=== PATIENT | female | born 1960 | race Caucasian/White ===

== ENCOUNTER → 2017-12-30 08:59 | Outpatient (CLI) | payer OTHER, SELFPAY ==
[2017-12-30 10:34] LABS: Absolute Lymphocyte Count 1.19 X10^3/ul (0.83-4.51); Absolute Neutrophil Count 6.2 X10^3/uL (2.0-7.7); Basophil# 0.02 X10^3/uL; Basophil% 0.3 % (0-1); Eosinophil# 0.08 X10^3/uL; Hemoglobin 14.2 g/dl (12.0-15.0); Lymphocyte # 1.19 X10^3/ul (4.0); Mean Corpuscular Hgb 31.8 pg (27.0-32.0); Mean Corpuscular Volume 96.4 fL (81-99); Mean Platelet Vol. 9.5 fl (6.2-12.0); Monocyte# 0.39 X10^3/uL; Monocyte% 4.9 % (0-10); Neutrophil # 6.22 X10^3/uL (2.7-7.7); Neutrophil % 78.7 % (47-70); Platelet Count 241 K/mm3 (150-450); RBC Distribution Width CV 14.6 % (11.6-14.6); RBC Distribution Width SD 49.5 fl (35.1-43.9); Red Blood Count 4.46 M/mm3 (4.2-5.4); White Blood Count 7.9 K/mm3 (4.4-11.0)
[2017-12-30 10:43] LABS: ALB/GLOB Ratio 1.1 RATIO (0.9-2.4); AST(SGOT) 18 U/L (15-37); Alanine Aminotransfer ALT/SGPT 31 U/L (13-56); Albumin, Serum 3.8 g/dL (3.2-5.0); Alkaline Phosphatase 135 U/L (45-117); Anion Gap 6 (5-15); BUN 15 mg/dL (7-18); BUN/Creat Ratio 13.2 RATIO (10-20); Calcium,Total 8.8 mg/dL (8.5-10.1); Chloride 104 mmol/L (98-107); Creatinine, Serum 1.14 mg/dL (0.55-1.02); EST Glomerular Filtration Rate 52 mL/min (>60); Est Glom Filt Rate - Afr Amer 63 mL/min (>60); Globulin 3.6 g/dL (2.2-4.2); Glucose 98 mg/dL (74-106); Potassium 4.6 mmol/L (3.5-5.1); Protein, Total 7.4 g/dL (6.4-8.2); Sodium Level 141 mmol/L (136-145)
[2017-12-30 10:44] LABS: POSITIVE COUNT NO; POSITIVE DIFFERENTIAL NO; POSITIVE MORPHOLOGY NO
== END ==
PROVIDERS: Family Provider Family Medicine; PCP Family Medicine; Visit Provider Internal Medicine Rheumatology
DX: M06.4 Inflammatory polyarthropathy (principal); M21.40 Flat foot [pes planus] (acquired), unspecified foot; R51 Headache; H40.9 Unspecified glaucoma; Z79.899 Other long term (current) drug therapy
CPT/HCPCS: 36415; 80053; 85025

== ENCOUNTER 2018-03-05 17:14 | Emergency (ER) | payer OTHER, SELFPAY ==
[2018-03-05 17:15] VITALS: BP 143/87; PULSE 97; RESP 16; TEMP 36.7; O2SAT 99; BMI 32.9
--- NOTE | 2018-03-05 17:46 | ED.DCSUM_ITS ---
- ER Visit Summary Date of Service: 03/05/18 Chief Complaint: Foreign body in left ear History of Present Illness: The patient is a 58 F who presents with a foreign body to her left ear that occurred today. Patient states a bug flew into her left ear. Patient states she has irritation of her left ear. Patient denies any hearing changes. Patient denies any fevers or chills. Patient denies any headaches. Patient denies any dizziness. Patient denies any other symptoms. Physical Examination: Vital signs are stable. Patient is afebrile. Patient is in no acute distress. There is a small foreign body noted in the left external auditory canal. The tympanic membranes and external auditory canals are otherwise clear. Oral mucosa is pink and moist. Neck is supple. There is good range of motion. Cranial nerves II through XII are intact. There are no focal motor or sensory deficits noted. The remaining physical exam is within normal limits. Emergency Department Course and Treatment: The left ear was irrigated. The foreign body was removed. Patient felt better on reevaluation. Patient was instructed to follow-up with her primary care physician in 7-10 days. She understood and was agreeable with the plan. All questions were answered. Disposition: Discharged home Impression: Foreign body left ear This note was generated with [employer] dictation software. It may contain incorrect words, spelling, and punctuation that were not noted in review of the chart prior to signing ED Disposition - Plan for ED Patient: Disposition: Home or Assisted Living Chief Complaint: Foreign Body Instructions: ED Foreign Body Ear Canal Referrals: Lonny Payne DO [Primary Care Provider] -
[2018-03-05 18:03] VITALS: PULSE 87; RESP 17; O2SAT 99
== END 2018-03-05 18:04 | disposition home or self-care (01) ==
LOC: ED 18:00
PROVIDERS: Emergency Provider Emergency Medicine; Family Provider Family Medicine; PCP Family Medicine
DX: T16.2XXA Foreign body in left ear, initial encounter (principal); Z79.899 Other long term (current) drug therapy
CPT/HCPCS: 99282

== ENCOUNTER → 2018-05-11 10:19 | Outpatient (CLI) | payer OTHER, SELFPAY ==
[2018-05-11 13:00] LABS: Vitamin D,25 Hydroxy 39.3 ng/mL (29.95-100.01)
[2018-05-11 13:14] LABS: T4 Free Direct 0.95 ng/dL (0.76-1.46); Thyroid Stim Hormone (TSH) 4.91 uIU/mL (0.358-3.74)
== END ==
PROVIDERS: Family Provider Family Medicine; PCP Family Medicine; Visit Provider Family Medicine
DX: E55.9 Vitamin D deficiency, unspecified (principal); Z86.39 Personal history of other endocrine, nutritional and metabolic disease
CPT/HCPCS: 36415; 82306; 84439; 84443

== ENCOUNTER → 2018-10-19 08:21 | Outpatient (CLI) | payer OTHER, SELFPAY ==
--- NOTE | 2018-10-19 08:24 | BI_ITS ---
MAMMOGRAPHY - BILATERAL SCREENING REASON FOR EXAM: Female, 58 years old. Routine annual screening examination. PERTINENT HISTORY: Grandmother with breast cancer. Aunts with breast cancer. TECHNIQUE: Digital bilateral breast kristine (3D mammographic acquisition) in the CC and MLO projections. 2-D mediolateral oblique (MLO) and craniocaudad (CC) views of both breasts were obtained. CAD: Full Field Digital Mammography with Computer Added Detection was performed. COMPARISON: Comparison is made with prior study dated August 12, 2017 and July 17, 2016. FINDINGS: Breast Composition: The breasts are almost entirely fatty. There are no dominant masses or suspicious calcifications. No other significant abnormalities are identified. There has been no significant change since the prior study. BI/SCREENING MAMM (CAD), BILAT IMPRESSION: Stable bilateral screening mammogram. Yearly follow-up mammogram recommended. (A) ASSESSMENT CATEGORY: BIRADS Category 1: Negative. A letter regarding these results will be sent to the patient by the facility within 30 days. Approximately 10% of breast cancers are not detected by mammography. A normal mammogram should not delay biopsy of a clinically suspicious abnormality. [id number] Electronically Signed: Art Logan MD at 9:55 EST Tel [phone], Service support ,
== END ==
PROVIDERS: Family Provider Family Medicine; PCP Family Medicine; Referring Provider Obstetrics & Gynecology; Visit Provider Obstetrics & Gynecology
DX: Z12.31 Encounter for screening mammogram for malignant neoplasm of breast (principal)
CPT/HCPCS: 77063; 77067

== ENCOUNTER → 2018-12-10 16:15 | Outpatient (CLI) | payer OTHER, SELFPAY | PROVIDERS: Family Provider Family Medicine; PCP Family Medicine; Visit Provider Family Medicine | DX: J20.8 Acute bronchitis due to other specified organisms (principal) | CPT/HCPCS: 87633 ==

== ENCOUNTER → 2018-12-24 09:51 | Outpatient (CLI) | payer OTHER, SELFPAY ==
--- NOTE | 2018-12-24 10:01 | NM_ITS ---
CLINICAL: 58-year-old female with suspected Paget's disease of bone. WHOLE BODY 99m Tc MDP RADIONUCLIDE BONE SCINTIGRAPHY COMPARISON: None available FINDINGS: Following the intravenous administration of 28.0 mCi of 99m Tc MDP, whole body bone images reveal: 1. Increased radiopharmaceutical concentration is identified in the left wrist, sternoclavicular compartments of both shoulders, acromioclavicular compartment of the right shoulder, fifth lumbar vertebra posteriorly on the right, posterior midline sacrum, the bilateral knees, right ankle, the left mid and forefoot, right-left hands. 2. The remaining skeletal structures are scintigraphically unremarkable with normal-appearing renal images and urinary bladder activity identified. Enhanced tracer concentration is identified in the bilateral mandible, maxilla and lacrimal bones most consistent with periostitis and/or periodontal disease. NM/Bone Scan Whole Body IMPRESSION: 1. The increase in radiopharmaceutical concentration defined of the left wrist, bilateral shoulders, lumbar spine and sacrum, both knees, right ankle, the left mid and forefoot, both hands is commensurate with degenerative arthritis. 2. There is no definitive typical scintigraphic evidence of a metabolic bone disorders-Paget's disease of bone on the current examination. Electronically Signed: Vinny Romano DO at 23:40 EDT Tel , Service support ,
[2018-12-25 16:08] LABS: Alkaline Phosphatase, Serum 163 IU/L (39-117); Bone Fraction 39 % (14-68); Liver Fraction 28 % (18-85)
[2018-12-27 09:10] LABS: Intestinal Fraction 33 % (0-18)
== END ==
PROVIDERS: Family Provider Family Medicine; PCP Family Medicine; Referring Provider Internal Medicine Rheumatology; Visit Provider Internal Medicine Rheumatology
DX: R74.8 Abnormal levels of other serum enzymes (principal)
CPT/HCPCS: 36415; 78306; 84075; 84080

== ENCOUNTER → 2019-02-09 | Outpatient (CLI) | payer OTHER, SELFPAY ==
--- NOTE | 2019-02-09 14:27 | RAD_ITS ---
STUDY: X-RAY CHEST REASON FOR EXAM: Female, 59 years old. Cough TECHNIQUE: PA and lateral views of the chest. COMPARISON: None. FINDINGS: The lungs are clear and expanded. There is no demonstrated pleural abnormality. Normal size heart. Normal mediastinum and debbie. Normal visualized pulmonary arteries. Normal visualized aortic arch and descending thoracic aorta. There are diffuse degenerative changes of the visualized thoracic spine. Normal visualized ribs, clavicles, and shoulders. There is no demonstrated abnormality of the visualized soft tissue structures of the upper abdomen. RAD/Chest PA and Lateral IMPRESSION: No demonstrated acute cardiopulmonary process. Electronically Signed: Catherine Andrew MD at 19:58 EDT Tel , Service support ,
[2019-02-09 15:09] LABS: Absolute Lymphocyte Count 2.02 X10^3/ul (0.83-4.51); Absolute Neutrophil Count 4.3 X10^3/uL (2.0-7.7); Basophil# 0.03 X10^3/uL; Basophil% 0.4 % (0-1); Eosinophil# 0.15 X10^3/uL; Eosinophils% 2.2 % (0-5); Hematocrit 42.1 % (37-47); Hemoglobin 13.9 g/dl (12.0-15.0); Lymphocyte # 2.02 X10^3/ul (4.0); Lymphocyte % 29.5 % (19-41); Mean Corpuscular Hgb 29.4 pg (27.0-32.0); Mean Corpuscular Volume 89.2 fL (81-99); Mean Platelet Vol. 9.6 fl (6.2-12.0); Monocyte# 0.39 X10^3/uL; Monocyte% 5.7 % (0-10); Neutrophil # 4.25 X10^3/uL (2.7-7.7); Neutrophil % 62.1 % (47-70); Platelet Count 266 K/mm3 (150-450); RBC Distribution Width SD 42.1 fl (35.1-43.9); Red Blood Count 4.72 M/mm3 (4.2-5.4); White Blood Count 6.9 K/mm3 (4.4-11.0)
[2019-02-09 15:11] LABS: POSITIVE COUNT NO; POSITIVE DIFFERENTIAL NO; POSITIVE MORPHOLOGY NO
== END | disposition home or self-care (01) ==
LOC: MTLAB 14:23
PROVIDERS: Family Provider Family Medicine; PCP Family Medicine; Referring Provider Family Medicine; Visit Provider Family Medicine
DX: R05 Cough (principal)
CPT/HCPCS: 36415; 71046; 85025

== ENCOUNTER → 2019-03-24 | Outpatient (CLI) | payer OTHER, SELFPAY ==
--- NOTE | 2019-03-24 07:47 | US_ITS ---
STUDY: ABDOMINAL ULTRASOUND - RIGHT UPPER QUADRANT REASON FOR VISIT: Female, 59 years old. Elevated alkaline phosphatase. TECHNIQUE: Ultrasound evaluation of the right upper quadrant was performed with real-time and static quintero-scale imaging. TECHNICAL QUALITY: Adequate. COMPARISON: None. FINDINGS: Liver: The liver measures 13.8 cm. There is increased echogenicity consistent with fatty infiltration. The bile ducts are within normal limits. There is hepatic color flow. The direction of portal flow is hepatopetal. There is no demonstrated mass lesion. Gallbladder: Normal distended gallbladder. The gallbladder wall measures 1.8 mm. There is a negative sonographic Rivera's sign. There is no pericholecystic fluid. There are no gallstones. Common Bile Duct (C.B.D.): The common bile duct measures 6.1 mm. Pancreas: Normal size of the head, body and tail of the pancreas. There is increased echogenicity of the pancreas. There is no demonstrated pancreatic mass or cyst. Right Kidney: Normal size of the right kidney. The right kidney measures 10.1 cm x 4.8 cm x 3.9 cm. Normal renal cortex. The right cortex measures 1.0 cm. There is no demonstrated renal mass or cyst. There is no right hydronephrosis. US/Liver IMPRESSION: Fatty infiltration of the liver. Electronically Signed: Art Logan, at 15:24 EDT , Service support ,
== END | disposition home or self-care (01) ==
LOC: US 07:44
PROVIDERS: Family Provider Family Medicine; PCP Family Medicine; Referring Provider Family Medicine; Visit Provider Family Medicine
DX: R74.8 Abnormal levels of other serum enzymes (principal)
CPT/HCPCS: 76705

== ENCOUNTER → 2019-06-29 | Outpatient (CLI) | payer OTHER, SELFPAY ==
[2019-06-29 12:57] LABS: AST(SGOT) 14 U/L (15-37); Alanine Aminotransfer ALT/SGPT 27 U/L (13-56); Albumin, Serum 3.8 g/dL (3.2-5.0); Alkaline Phosphatase 207 U/L (45-117); Anion Gap 6 (5-15); BUN 27 mg/dL (7-18); BUN/Creat Ratio 23.3 RATIO (10-20); Calcium,Total 9.2 mg/dL (8.5-10.1); Chloride 106 mmol/L (98-107); Creatinine, Serum 1.16 mg/dL (0.55-1.02); EST Glomerular Filtration Rate 51 mL/min (>60); Est Glom Filt Rate - Afr Amer 61 mL/min (>60); Glucose 98 mg/dL (74-106); Potassium 4.3 mmol/L (3.5-5.1); Protein, Total 7.8 g/dL (6.4-8.2); Sodium Level 141 mmol/L (136-145)
[2019-06-29 13:37] LABS: Hepatitis C Antibody Non-Reactive (Nonreactive)
== END | disposition home or self-care (01) ==
LOC: LAB.FUTURE 12:20
PROVIDERS: Family Provider Family Medicine; PCP Family Medicine; Visit Provider Family Medicine
DX: K75.81 Nonalcoholic steatohepatitis (NASH) (principal); R74.8 Abnormal levels of other serum enzymes
CPT/HCPCS: 36415; 80053; 86803

== ENCOUNTER → 2019-07-28 | Outpatient (CLI) | payer OTHER, SELFPAY ==
[2019-07-28 16:22] LABS: AST(SGOT) 15 U/L (15-37); Alanine Aminotransfer ALT/SGPT 26 U/L (13-56); Albumin, Serum 3.8 g/dL (3.2-5.0); Alkaline Phosphatase 178 U/L (45-117); Bilirubin, Direct < 0.05 mg/dL (0.00-0.30); GGTP 22 U/L (5-55); Globulin 3.6 g/dL (2.2-4.2); Protein, Total 7.4 g/dL (6.4-8.2)
[2019-07-30 17:54] LABS: Anti-Mitochondrial AB <20.0 Units (0.0-20.0)
== END | disposition home or self-care (01) ==
LOC: MTLAB 14:39
PROVIDERS: Family Provider Family Medicine; PCP Family Medicine; Referring Provider Internal Medicine Gastroenterology; Visit Provider Internal Medicine Gastroenterology
DX: K76.0 Fatty (change of) liver, not elsewhere classified (principal)
CPT/HCPCS: 36415; 80076; 82977; 83516

== ENCOUNTER → 2019-11-05 08:22 | Outpatient (CLI) | payer OTHER, SELFPAY ==
--- NOTE | 2019-11-05 08:34 | BI_ITS ---
MAMMOGRAPHY - BILATERAL SCREENING REASON FOR EXAM: Female, 59 years old. Routine annual screening examination. PERTINENT HISTORY: Grandmother with breast cancer. Aunt with breast cancer. TECHNIQUE: Digital bilateral breast mary ellen (3D mammographic acquisition) in the CC and MLO projections. 2-D mediolateral oblique (MLO) and craniocaudad (CC) views of both breasts were obtained. CAD: Full Field Digital Mammography with Computer Added Detection was performed. COMPARISON: Comparison is made with prior study dated April 18, 2019 and August 12, 2017 FINDINGS: Breast Composition: The breasts are almost entirely fatty. There are no dominant masses or suspicious calcifications. No other significant abnormalities are identified. There has been no significant change since the prior study. BI/SCREEN MAMM (CAD) W/MARY ELLEN BILAT IMPRESSION: Stable bilateral screening mammogram. Yearly follow-up mammogram recommended. (A) ASSESSMENT CATEGORY: BIRADS Category 1: Negative. A letter regarding these results will be sent to the patient by the facility within 30 days. Approximately 10% of breast cancers are not detected by mammography. A normal mammogram should not delay biopsy of a clinically suspicious abnormality. [id number] Electronically Signed: Art Logan, at 10:36 EST , Service support ,
== END ==
PROVIDERS: PCP Family Medicine; Referring Provider Obstetrics & Gynecology; Visit Provider Obstetrics & Gynecology
DX: Z12.31 Encounter for screening mammogram for malignant neoplasm of breast (principal)
CPT/HCPCS: 77063; 77067

== ENCOUNTER 2020-03-13 09:23 | Observation (INO) | payer OTHER, SELFPAY ==
[2020-03-13] VITALS (16 sets, daily range): BP systolic 106–155; BP diastolic 64–86; PULSE 16–79; RESP 12–67; TEMP 36.7–36.9; O2SAT 97–99; BMI 34.5; BMI 33.0
[2020-03-13 09:36] LABS: Bedside Glucose 124 mg/dL (70-110)
--- NOTE | 2020-03-13 09:39 | EKG12_ITS ---
Test Reason : NEURO Blood Pressure : / mmHG Vent. Rate : 065 BPM Atrial Rate : 065 BPM P-R Int : 174 ms QRS Dur : 090 ms QT Int : 428 ms P-R-T Axes : 042 029 067 degrees QTc Int : 445 ms Normal sinus rhythm Poor R wave progression Nonspecific T wave abnormality Confirmed by EVERETT PARRISH, CHELLY ([id number]), electronic news gathering editor BLANCA LEE ([id number]) on 03/16/2020 10:22:18 AM Referred By: JAVIER/ Confirmed By:CHELLY FLOYD MD
--- NOTE | 2020-03-13 09:41 | CT_ITS ---
STUDY: CTA HEAD AND NECK WITH CONTRAST REASON FOR EXAM: Female, 60 years old. MIGRAINE YESTERDAY, DIZZINESS, VISION CHANGES, RT NECK PAIN, RT FACIAL TINGLING RADIATION DOSAGE (If Supplied By Facility): CTDIvol = ( 26.44 ) mGy, DLP = ( 1375.26 ) mGycm TECHNIQUE: CT angiography was performed with a multi-detector CT scanner. Data acquisition was obtained from the skull base through the vertex following intravenous administration of 100 CC ISOVUE 300. MIP images were reconstructed from the axial data set. Post-processing of the angiographic images was performed, with multiplanar reformation and 3D reconstruction. Individualized dose optimization techniques were used for this CT. COMPARISON: No relevant priors. FINDINGS: Normal bilateral petrous carotid arteries. Normal right cavernous carotid artery with a normal supraclinoid bifurcation. Normal left cavernous carotid artery with a normal supraclinoid bifurcation. Normal right A1 segments of the anterior cerebral artery. Normal left A1 segments of the anterior cerebral artery. Normal intact anterior communicating artery (ACOM). Normal bilateral A2 segments of the anterior cerebral arteries. Normal right M1 and M2 segments of the middle cerebral arteries, with a normal M1 bifurcation. Normal left M1 and M2 segments of the middle cerebral arteries, with a normal M1 bifurcation. Normal right posterior communicating artery (PCOM). Normal left posterior communicating artery (PCOM). Normal bilateral vertebral arteries. Normal basilar artery with a normal basilar bifurcation. The visualized bilateral superior cerebellar (SCA) arteries are normal. Normal bilateral P1, P2 and visualized P3 segments of the posterior cerebral arteries. There is no demonstrated aneurysm of the [facility] [place]. There is no demonstrated abnormality of the visualized brain. AORTIC ARCH: Normal visualized aortic arch. Normal origins of the brachiocephalic, left common carotid, and left subclavian arteries. RIGHT CAROTID ARTERIES: Normal right common carotid artery (CCA). Normal right common carotid bulb. Normal origin of the right internal carotid (ICA) artery without a hemodynamically significant stenosis. Normal visualized cervical portion of the right internal carotid artery. Normal origin of the right external carotid artery (ECA). LEFT CAROTID ARTERIES: Normal left common carotid artery (CCA). Normal left common carotid bulb. Normal origin of the left internal carotid (ICA) artery without a hemodynamically significant stenosis. Normal visualized cervical portion of the left internal carotid artery. Normal origin of the left external carotid artery (ECA). VERTEBRAL ARTERIES: Normal bilateral vertebral arteries. CT/CTA Head AND Neck W/ Contrast IMPRESSION: Normal CTA Head and neck with contrast. Electronically Signed: Art Logan, at 11:16 EDT , Service support ,
--- NOTE | 2020-03-13 09:42 | ED.VIS.GEN ---
History of Present Illness Chief Complaint: Neuro S/Sx Narrative: Patient is a 60-year-old female who presents with headache, dizziness, facial paresthesias. She has a history of migraines remotely but these have been well controlled. Over the past 2 weeks she has been having frequent headaches although she notes this is different in character than her migraines. Currently she only complains of mild pain but she has a throbbing sensation in her head. She also complains of bilateral eye pain starting last night. She does have a history of glaucoma. She does not have light sensitivity. She also began to feel dizzy and lightheaded last night and had difficulty ambulating because of this. She denies any weakness or paresthesias in the extremities although she does complain of some right facial paresthesias. No dysarthria or aphasia. She denies history of diabetes or hypertension. No prior history of [place] or stroke. She is not anticoagulated. She also complains of pain on the right side of her neck. Past Medical History - Allergies and Home Meds Allergies/Adverse Reactions: Allergies No Known Allergies Allergy (Verified 03/13/20 09:28) Primary Care Physician: Lonny Payne DO [Primary Care Provider] - Past Medical History: - - Glaucoma, migraines Smoking Status: Never smoker Review of Systems All systems negative except as indicated General: Denies: Fever Eyes: Reports: - - Bilateral eye pain, no photophobia ENT: Denies: Bilateral ear pain Cardiovascular: Denies: Chest pain Respiratory: Denies: Dyspnea Gastrointestinal: Denies: Abdominal pain, Nausea, Vomiting Musculoskeletal: Reports: Neck pain Skin: Denies: Rash Neurological: Reports: Headache Allergy: Denies: Uticaria Physical Exam Vital Signs/Narrative: Vital Signs Temp Pulse Resp BP Pulse Ox 03/13/20 09:24 98.2 F 72 14 155/81 H 98 Inital Vital Signs reviewed: Yes General: Well nourished, Well developed Head: Normocephalic, Atraumatic Eyes: Perrl, EOMI ENT: Moist mucous membranes Neck: Supple Cardiovascular: Regular rate, Regular rhythm Respiratory: No distress, CTA bilaterally Abdomen: Soft, Nontender, Nondistended Extremities: Nontender, No edema Skin: Normal color Neurological: Alert, Oriented x3, Cranial nerves II-XII grossly intact, Normal Strength, - - Patient complains of decreased sensation on the right side of the face only normal sensation and strength of the extremities Psychological: Normal affect Diagnostic/Tx/Re-eval Impressions Head/Neck CTA 03/13/20 09:41 IMPRESSION: Normal CTA Head and neck with contrast. Electronically Signed: Art Doreen, at 11:16 EDT , Service support , Chest X-Ray 03/13/20 10:56 IMPRESSION: Normal x-ray examination of the chest. Electronically Signed: Art Doreen, at 11:17 EDT , Service support , 03/13/20 09:41 CTA Head AND Neck W/ Contrast [CT] Stat 03/13/20 10:56 Chest 1 View [RAD] Stat Laboratory Results 03/13/20 03/13/20 03/13/20 09:30 09:30 09:30 WBC 5.2 RBC 4.87 Hgb 14.2 Hct 44.1 MCV 90.6 MCH 29.2 MCHC 32.2 RDW Std Deviation 42.0 RDW Coeff of Gisselle 12.8 Plt Count 248 MPV 9.5 Immature Gran % (Auto) 0.400 Neut % (Auto) 65.2 Lymph % (Auto) 22.0 Florence % (Auto) 7.7 Eos % (Auto) 3.7 Baso % (Auto) 1.0 Absolute Neuts (auto) 3.4 Absolute Lymphs (auto) 1.14 Nucleated RBC % 0 PT 12.5 INR 1.0 APTT 25.2 Sodium 139 Potassium 4.4 Chloride 104 Carbon Dioxide 29.0 Anion Gap 6 BUN 16 Creatinine 1.07 H Estim Creat Clear Calc 45.67 Est GFR (MDRD) Af Amer 67 Est GFR (MDRD) Non-Af 55 L BUN/Creatinine Ratio 15.0 Glucose 140 H Calcium 9.3 Troponin I < 0.015 POC Glucose 03/13/20 09:31 WBC RBC Hgb Hct MCV MCH MCHC RDW Std Deviation RDW Coeff of Gisselle Plt Count MPV Immature Gran % (Auto) Neut % (Auto) Lymph % (Auto) Florence % (Auto) Eos % (Auto) Baso % (Auto) Absolute Neuts (auto) Absolute Lymphs (auto) Nucleated RBC % PT INR APTT Sodium Potassium Chloride Carbon Dioxide Anion Gap BUN Creatinine Estim Creat Clear Calc Est GFR (MDRD) Af Amer Est GFR (MDRD) Non-Af BUN/Creatinine Ratio Glucose Calcium Troponin I POC Glucose 124 H - Medical Decision Making Bilateral intraocular pressures were obtained and range 21-22 bilaterally. This is the upper range of normal. However patient notes that she is normally under 13. I did speak to ophthalmology on-call, Dr. Fishman. He advised that this change would be unlikely to cause any symptoms. Remainder of patient's work-up shows EKG showing normal sinus rhythm at a rate of 65 with no acute ischemic changes. Labs are unremarkable. CTA of the head and neck is normal. I am concerned that this may be due to central pathology and do believe stroke needs ruled out. This may also be related to complex migraine. I do feel the patient would benefit from hospitalization and further evaluation. Patient is agreeable to this plan. Patient discussed with the hospitalist and admitted. ED Disposition - Plan for ED Patient: Disposition: Acute Care Hospital [facility] Diagnosis: Headache, Dizziness Referrals: Lonny Payne DO [Primary Care Provider] -
[2020-03-13] MEDS: Tetracaine 0.5% Ophthalmic Bottle 1 DRP EACH EYE (10:00)
[2020-03-13 10:11] LABS: Absolute Lymphocyte Count 1.14 X10^3/uL (0.83-4.51); Absolute Neutrophil Count 3.4 X10^3/uL (2.0-7.7); Basophil# 0.05 X10^3/uL; Eosinophil# 0.19 X10^3/uL; Eosinophils% 3.7 % (0-5); Hematocrit 44.1 % (37-47); Hemoglobin 14.2 g/dL (12.0-15.0); Lymphocyte # 1.14 X10^3/ul (4.0); Mean Corp Hgb Conc 32.2 g/dL (32-36); Mean Corpuscular Hgb 29.2 pg (27.0-32.0); Mean Corpuscular Volume 90.6 fL (81-99); Mean Platelet Vol. 9.5 fl (6.2-12.0); Monocyte% 7.7 % (0-10); NRBC Flagged by Analyzer 0 % (0-5); Neutrophil # 3.39 X10^3/uL (2.7-7.7); Neutrophil % 65.2 % (47-70); Platelet Count 248 K/mm3 (150-450); RBC Distribution Width CV 12.8 % (11.6-14.6); Red Blood Count 4.87 M/mm3 (4.2-5.4); White Blood Count 5.2 K/mm3 (4.4-11.0)
[2020-03-13 10:16] LABS: Prothrombin Time (Protime)PT. 12.5 SECONDS (11.7-14.9)
[2020-03-13 10:17] LABS: Partial Thromboplast Time 25.2 Seconds (24.1-36.2)
[2020-03-13 10:25] LABS: Anion Gap 6 (5-15); BUN 16 mg/dL (7-18); Calcium,Total 9.3 mg/dL (8.5-10.1); Chloride 104 mmol/L (98-107); Creatinine, Serum 1.07 mg/dL (0.55-1.02); EST Glomerular Filtration Rate 55 mL/min (>60); Est Glom Filt Rate - Afr Amer 67 mL/min (>60); Estimated Creatinine Clearance 45.67 ml/min; Glucose 140 mg/dL (74-106); Potassium 4.4 mmol/L (3.5-5.1); Sodium Level 139 mmol/L (136-145)
--- NOTE | 2020-03-13 10:56 | RAD_ITS ---
STUDY: X-RAY CHEST REASON FOR EXAM: Female, 60 years old. PT C/O MIGRAINE STARTING YESTERDAY AFTERNOON. DIZZINESS AND SEEING ISSUES AROUND 1929. RIGHT NECK STARTED HURTING AROUND 2039 RIGHT FACIAL TINGLING TECHNIQUE: Single AP portable view of the chest. COMPARISON: Comparison is made with prior study dated February 09, 2019. FINDINGS: EKG electrodes are seen. Mild elevation of the right hemidiaphragm. There is no demonstrated pleural abnormality. Normal size heart. Normal mediastinum and debbie. Normal visualized pulmonary arteries. Normal visualized aortic arch and descending thoracic aorta. Normal visualized thoracic spine. Normal visualized ribs, clavicles, and shoulders. There is no demonstrated abnormality of the visualized soft tissue structures of the upper abdomen. RAD/Chest 1 View IMPRESSION: Normal x-ray examination of the chest. Electronically Signed: Art Logan, at 11:17 EDT , Service support ,
--- NOTE | 2020-03-13 11:53 | NURSING ---
DR ANGELES FOR DR GEE
--- NOTE | 2020-03-13 12:02 | NURSING ---
PCU OBS KARTHIK HEADACHE, DIZZINESS
--- NOTE | 2020-03-13 12:02 | NURSING ---
DR ANGELES IN ER
--- NOTE | 2020-03-13 12:25 | HP.PCM_ITS ---
Problem List (1) Atypical migraine Status: Acute (2) Dizziness Status: Acute History of Present Illness Date of Admission: 03/13/20 Chief Complaint: Dizziness, right facial numbness since yesterday evening The patient is a 60 year old F with history of chronic migraine but no recent headache for last 5 years, came to ER with 2-week history of frequent headache. Headache starts in retrobulbar region and migrates to tragus of the ear to submandibular area and back of neck. She also complained of dizziness, right facial paresthesia/numbness, dyslipidemia with leaning on the right side since yesterday evening. In the ED, she had bilateral IOP and were 21-22 in both eyes; elevated from baseline [address] Jo talked to financial aids officer and he thinks headache is not due to glaucoma. She had an appointment with financial aids officer today which got worse point. Patient denies facial drooping, language deficit, dysarthria, dysphagia, quadrantanopsia/hemianopsia or decreased sensation in one half of her body. She never had a stroke. [] Past Medical History Allergies No Known Allergies Allergy (Verified 03/13/20 09:28) Home Medications: Ambulatory Orders Medication Instructions Recorded Latanoprost 0.005% [Xalatan 1 drop EACH EYE QHS 02/23/14 Opthalmic] Propranolol HCl [Inderal LA (Beta 80 mg PO QHS 02/23/14 Nissa)] Smoking Status: Never smoker - *Family History Paternal History Items: No pertinent history - No pertinent history of cancer, migraine or head and neck cancer Review of Systems Constitutional: Denies: Chills, Fever, Weight Change HEENT: Denies: Head Aches, Sinus Congestion, Sinus Drainage Cardiovascular: Denies: Chest Pain, Palpitations Respiratory: Denies: Cough, Shortness of breath at rest, Sputum production Gastrointestinal: Denies: Abdominal Pain, Nausea, Vomiting Genitourinary: Denies: Dysuria Musculoskeletal: Denies: Joint Pain, Joint Tenderness Skin: Denies: Rash, Wounds Neurological: Reports: Balance problems, Headaches, Incoordination, Numbness. Denies: Double vision, Change in Speech, Slurred speech, Confusion, Difficulty swallowing, Focal weakness, Tingling, Tremor, Seizures Psychiatric: Denies: Anxiety, Depression, Homicidal Ideations, Suicidal Ideations Hematologic/ Lymphatic: Denies: Easy Bruising, Easy Bleeding VTE Information - Inpt Only VTE Present on Admission: No VTE Mechan Device Prophylaxis: None VTE Pharm Prophylaxis ordered?: Yes Patient Problems: Active and Suspected Problems Headache (Acute) Dizziness (Acute) Atypical migraine (Acute) - Physical Exam Vitals/I&O's: Vital Signs Temp Pulse Resp BP Pulse Ox 98.2 F 65 19 H 122/64 H 97 03/13/20 09:24 03/13/20 12:00 03/13/20 12:00 03/13/20 12:00 03/13/20 12:00 Oxygen Delivery Method Room Air Weight: 195 lb 1.745 oz Body Mass Index (BMI) 34.5 Finger Stick Blood Glucose 124 General: Alert, Oriented x3, Cooperative HEENT: Atraumatic, PERRLA, EOMI, Normocephalic Neck: Supple, No JVD, Negative Carotid Bruits Lungs: Clear to auscultation, Normal air movement, No rhonchi, No wheeze, No rales Cardiovascular: Regular rate, Regular Rhythm, Normal S1, Normal S2, No murmurs Abdomen: Bowel Sounds Present, Soft, Non Tender, Non-Distended Extremities: No edema, Capillary Refill Less than 3 Seconds Skin: No rashes, No breakdown Musculoskeletal: No Tenderness to Palpation of Joints or Extremities Neurological: Cranial nerves II-XII grossly intact, Deep Tendon Reflexes 2+/4 and Symmetrical, Neuro grossly intact, Motor Exam 5/5 strength throughout, - - No neck rigidity. No meningeal signs. Psych/Mental Status: Normal Affect, Appropriate Laboratory Results 03/13/20 09:30: WBC 5.2, RBC 4.87, Hgb 14.2, Hct 44.1, MCV 90.6, MCH 29.2, MCHC 32.2, RDW Std Deviation 42.0, RDW Coeff of Gisselle 12.8, Plt Count 248, MPV 9.5, Immature Gran % (Auto) 0.400, Neut % (Auto) 65.2, Lymph % (Auto) 22.0, Parker % (Auto) 7.7, Eos % (Auto) 3.7, Baso % (Auto) 1.0, Absolute Neuts (auto) 3.4, Absolute Lymphs (auto) 1.14, Nucleated RBC % 0 06/01/20 09:30: PT 12.5, INR 1.0, APTT 25.2 03/13/20 09:30: Sodium 139, Potassium 4.4, Chloride 104, Carbon Dioxide 29.0, Anion Gap 6, BUN 16, Creatinine 1.07 H, Estim Creat Clear Calc 45.67, Est GFR (MDRD) Af Amer 67, Est GFR (MDRD) Non-Af 55 L, BUN/Creatinine Ratio 15.0, Glucose 140 H, Calcium 9.3, Troponin I < 0.015 03/13/20 09:31: POC Glucose 124 H Assessment/Plan All Active Problems Headache (Acute) Dizziness (Acute) Atypical migraine (Acute) This is a 60-year-old female with history of migraine and glaucoma came to ER with headache, right-sided facial numbness, disequilibrium. 1. 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 EKG shows normal sinus rhythm at [address] reported normal. Normal chest x-ray. MRI brain ordered. NIH stroke scale, blood pressure and glucose monitoring as per stroke guidelines, PT OT and speech evaluation. 2D echo if MRI brain positive of acute stroke. Tele- Neuro consult depending on further hospital course. Blood pressure is controlled. Glucose 114 BMP. Fasting profile, TSH, and A1c tomorrow a.m. 2. Migraine headache: She is on propranolol at home and is continued. 3. Bilateral glaucoma: Continue latanoprost 4. DVT prophylaxis: On Lovenox 40 mg subcu daily. Living will/advanced directive/end of life care: Patient does have living will or advanced directive. After discussion of procedures involved with full code, DNR CC arrest and DNR CC, the patient opted for full code Patient does want artificial life support including intubation, tube feed, ventilator and/chest compression, central venous catheter, vasopressor and DC shock if needed Total time spent in [id number] encounter in discussion of advanced directive 16 minutes. Clinical Impression(s) from Imaging Studies Head/Neck CTA 03/13/20 09:41 IMPRESSION: Normal CTA Head and neck with contrast. Chest X-Ray 03/13/20 10:56 IMPRESSION: Normal x-ray examination of the chest. OBSV E&M: 26042 Initial observation care L3 Procedures: 16179 Advncd Care Plan 30 Min
--- NOTE | 2020-03-13 13:06 | MRI_ITS ---
STUDY: MRI BRAIN WITHOUT CONTRAST REASON FOR EXAM: Female, 60 years old. migraines, bilat eye pain, rt facial numbness x 2 weeks TECHNIQUE: Standardized multiplanar fat and water weighted pulse sequences were obtained. COMPARISON: MRI of the brain dated February 22, 2012. Head CTA dated March 13, 2020 FINDINGS: There is mild cerebral atrophy with widening of the extra-axial spaces and ventricular dilatation. There are a limited number of small white matter hyperintensities, distributed throughout the deep white matter tracts of the cerebral hemispheres, consistent with mild chronic white matter ischemic changes. There is no evidence for recent intracranial ischemia or other cause of cytotoxic edema on diffusion weighted imaging (DWI). Normal T2* images of the brain without demonstrated susceptibility artifact. There is no demonstrated hemosiderin stain. Normal bilateral basal ganglia. Normal thalami. There is no extra-axial fluid accumulation. Normal flow voids within the major intracranial circulation suggesting patency by spin echo criteria. Normal sella turcica, pituitary gland, infundibular stalk, optic chiasm and hypothalamus. Normal tectal plate and pineal gland. Normal midbrain, bhavani and medulla. Normal cerebellum. Normal basal cisterns. Normal bilateral temporal bones. Normal bilateral internal auditory canals. No demonstrated orbital abnormality, within the constraints of a routine brain study. Normal visualized paranasal sinuses. Normal calvarium and skull base. Normal visualized soft tissue structures. MRI/Brain without Contrast IMPRESSION: Mild chronic ischemic and involutional changes of the brain, as described above. Electronically Signed: Justin Pate MD at 15:36 EDT , Service support ,
[2020-03-13] MEDS: 0.9% Normal Saline 1,000 ML 100 ML IV (13:39)
--- NOTE | 2020-03-13 14:36 | CASEMGMT ---
As per admitting RN, pt has LW/POA forms but is not able to bring in the forms at this time. Pt indicated Americo Hall is medical POA. SUSIE Willis
[2020-03-13] MEDS: Enoxaparin 40 MG/0.4 ML Syringe SC (16:00)
[2020-03-13] MEDS: Ibuprofen 600 MG Tablet PO (18:10)
[2020-03-13] MEDS: Methocarbamol 500 MG Tablet 1000 MG PO (21:31)
[2020-03-13] MEDS: Propranolol LA 80 MG Capsule PO (21:31)
[2020-03-13] MEDS: Ketorolac 15 MG/ML Vial IV (21:32)
[2020-03-13] MEDS: Famotidine 20 MG Tablet PO (21:33)
[2020-03-13] MEDS: Atorvastatin Calcium 40 MG Tablet PO (21:33)
[2020-03-13] MEDS: Latanoprost 0.005% 1 Bottle 1 DRP EACH EYE (21:39)
[2020-03-14 03:24] VITALS: PULSE 58
[2020-03-14 03:26] VITALS: BP 102/50; PULSE 56; RESP 16; TEMP 36.6; O2SAT 97
[2020-03-14] MEDS: Ketorolac 15 MG/ML Vial IV (05:22)
[2020-03-14 06:12] LABS: AST(SGOT) 34 U/L (15-37); Alanine Aminotransfer ALT/SGPT 40 U/L (13-56); Albumin, Serum 3.3 g/dL (3.2-5.0); Alkaline Phosphatase 134 U/L (45-117); Bilirubin, Direct 0.08 mg/dL (0.00-0.30); Cholesterol 205 mg/dL (200); Globulin 3.5 g/dL (2.2-4.2); High Density Lipoprotein 38 mg/dL; Magnesium 2.8 mg/dL (1.6-2.6); Protein, Total 6.8 g/dL (6.4-8.2); Thyroid Stim Hormone (TSH) 6.19 uIU/mL (0.358-3.74); Triglycerides 210 mg/dL; Very Low Density Lipoprotein 42 mg/dL (5-40)
[2020-03-14 06:47] VITALS: PULSE 58
[2020-03-14 07:45] VITALS: O2SAT 96
[2020-03-14 08:09] LABS: Hemoglobin A1c 5.5 % (3.8-5.6)
[2020-03-14 08:49] VITALS: BP 115/71; PULSE 64; RESP 16; TEMP 37; O2SAT 96
[2020-03-14] MEDS: Famotidine 20 MG Tablet PO (08:56)
[2020-03-14] MEDS: Methocarbamol 500 MG Tablet 1000 MG PO (08:57)
--- NOTE | 2020-03-14 09:56 | DCINST_ITS ---
- Discharge Diagnoses Current Active Problems: Current Active and Chronic Problems Headache (Acute) Dizziness (Acute) Atypical migraine (Acute) You will use the following diet at home:: Cardiac Your food should be the consistency of: Regular Discharge Activity: Return to Normal Activity Call your doctor if you observe: Fever of 101 or Higher, Numbness or Tingling, Inability to urinate, Inability to have a bowel movement, Using more than one pad per hour, Shortness of breath, Fainting spells, Swelling in the ankles, Chest pain, Prolonged hiccoughing, Increased palpitations (irregular heartbeat) Additional Instructions: can take OTC Ibuprofen 400 mg tid prn (as needed) for headache pain Allergies/Adverse Reactions: Allergies No Known Allergies Allergy (Verified 03/13/20 09:28) Medications to take at Discharge Latanoprost 0.005% [Xalatan Opthalmic] 1 drop EACH EYE QHS 02/23/14 Propranolol HCl [Inderal LA (Beta Nissa)] 80 mg PO QHS 02/23/14 Atorvastatin Calcium [Lipitor] 40 mg PO QHS #30 tab 03/14/20 cycloBENZAPRine HCl [Flexeril] 5 mg PO TID PRN PRN #20 tab 03/14/20 The following prescriptions were given: cycloBENZAPRine HCl [Flexeril] 5 mg PO TID PRN PRN #20 tab PRN Reason: muscle spasm Transmission Status: Pending to [id number] Atorvastatin Calcium [Lipitor] 40 mg PO QHS #30 tab Transmission Status: Pending [id number] Primary Care Physician: Lonny Payne DO [Primary Care Provider] - Please follow up with your Primary Care Physician in: in 1-2 weeks for elevated TSH 6.19 Test Results: Test results from this visit will be discussed in further detail at your follow- up appointment, if applicable. Please Follow Up With: Raulito Arauz MD When: IN 2-4 WEEKS for Migraine
--- NOTE | 2020-03-14 09:59 | DS.PCM_ITS ---
Discharge Date and Diagnosis - Problem List Patient Problems: Active and Suspected Problems Headache (Acute) Dizziness (Acute) Atypical migraine (Acute) Date of Admission: 03/13/20 Date of Discharge: 03/14/20 - Primary Discharge Diagnosis Acute Problems: Active Problems Headache (Acute) Dizziness (Acute) Atypical migraine (Acute) Headache most probably secondary to musculoskeletal/bruxism/TMJ. Hospital Course and Treatment Summary of Care Provided: The patient is a 60 year old F with history of migraine and glaucoma was admitted with headache/neck pain, right-sided facial numbness and disequilibrium. It seems she has musculoskeletal?headache, bruxism and cervicalgia. CTA head and neck was done and no major stenosis/significant found. MRI brain was negative for acute stroke. [facility] neurology saw the patient and recommended cocktail for headache including Toradol, Robaxi Phenergan and magnesium sulfate 2 g IV 1 dose. Patient headache resolved. Lab work shows elevated triglyceride 210, LDL 125 and patient agreed for atorvastatin and a prescription given. Prescription also given for Flexeril as needed for muscle spasm. TSH elevated 6.19 discussed with the patient and she agreed to follow-up with PCP as an outpatient for complete thyroid function test. She is not having specific symptoms of hypo-or hyperthyroidism. discharge medication reconciliation done. Discharge follow-up instructions completed. Discharge process discussed with the patient and all questions were answered to patient's satisfaction. Total time spent, exact 35 minutes on discharge meds reconciliation, examination, coordination of care with nurses and ancillary staff, review of imaging and blood test and discussion with the patient on follow-up instructions Patient Problems: Active and Suspected Problems Headache (Acute) Dizziness (Acute) Atypical migraine (Acute) Objective: Seen and examined. Headache resolved. Patient was seen by [facility] neurologist Labs discussed with the patient - Physical Exam Vitals/I&O's: Vital Signs Temp Pulse Resp BP Pulse Ox 98.6 F 64 16 115/71 96 03/14/20 08:49 03/14/20 08:49 03/14/20 08:49 03/14/20 08:49 03/14/20 08:49 Oxygen Delivery Method Room Air Weight: 186 lb 4.8 oz Body Mass Index (BMI) 33.0 Finger Stick Blood Glucose 124 Intake and Output for Last 24 Hours 03/12/20 03/13/20 03/14/20 23:59 23:59 23:59 Intake Total 1242.33 / 1242.33 461.67 / 461.67 Balance 1242.33 / 1242.33 461.67 / 461.67 General: Alert, Oriented x3, Cooperative HEENT: Atraumatic, PERRLA, EOMI, Normocephalic Neck: Supple, No JVD, Negative Carotid Bruits Lungs: Clear to auscultation, Normal air movement, No rhonchi, No wheeze, No rales Cardiovascular: Regular rate, No murmurs Abdomen: Bowel Sounds Present, Soft, Non Tender, Non-Distended, No Hepato- splenomegaly Extremities: No edema, Capillary Refill Less than 3 Seconds Skin: No rashes, No breakdown Musculoskeletal: No Tenderness to Palpation of Joints or Extremities Neurological: Cranial nerves II-XII grossly intact, Deep Tendon Reflexes 2+/4 and Symmetrical, Neuro grossly intact, Motor Exam 5/5 strength throughout, - - NIH stroke scale 0 Psych/Mental Status: Normal Affect, Appropriate Laboratory Results 03/13/20 09:30: WBC 5.2, RBC 4.87, Hgb 14.2, Hct 44.1, MCV 90.6, MCH 29.2, MCHC 32.2, RDW Std Deviation 42.0, RDW Coeff of Gisselle 12.8, Plt Count 248, MPV 9.5, Immature Gran % (Auto) 0.400, Neut % (Auto) 65.2, Lymph % (Auto) 22.0, Granite % (Auto) 7.7, Eos % (Auto) 3.7, Baso % (Auto) 1.0, Absolute Neuts (auto) 3.4, Absolute Lymphs (auto) 1.14, Nucleated RBC % 0 03/13/20 09:30: PT 12.5, INR 1.0, APTT 25.2 03/13/20 09:30: Sodium 139, Potassium 4.4, Chloride 104, Carbon Dioxide 29.0, Anion Gap 6, BUN 16, Creatinine 1.07 H, Estim Creat Clear Calc 45.67, Est GFR (MDRD) Af Amer 67, Est GFR (MDRD) Non-Af 55 L, BUN/Creatinine Ratio 15.0, Glucose 140 H, Calcium 9.3, Troponin I < 0.015 03/13/20 13:37: Troponin I < 0.015 03/14/20 05:20: Hemoglobin A1c 5.5 03/14/20 05:20: Magnesium 2.8 H, Total Bilirubin 0.40, Direct Bilirubin 0.08, AST 34, ALT 40, Alkaline Phosphatase 134 H, Total Protein 6.8, Albumin 3.3, Globulin 3.5, Triglycerides 210 H, Cholesterol 205 H, LDL Cholesterol 125, VLDL Cholesterol 42 H, HDL Cholesterol 38 L, TSH 6.19 H Current Medications Acetaminophen (Tylenol) 650 mg PO Q6H PRN PRN PRN Reason: Pain Score 1-10/Temp > 100.7 F Al Hydroxide/Mg Hydroxide (Mylanta Ii) 30 ml PO Q6H PRN PRN PRN Reason: Gastric Burning Atorvastatin Calcium (Lipitor) 40 mg PO QHS [facility] Last Admin: 03/13/20 21:33 Dose: 40 mg Documented by: Dextrose (D50w Syringe) 0 gm IV X1 PRN; Protocol PRN Reason: Hypoglycemia Enoxaparin Sodium (Lovenox) 40 mg SC DAILY [facility] Last Admin: 03/14/20 08:56 Dose: Not Given Documented by: Famotidine (Pepcid) 20 mg PO BID [facility] Last Admin: 03/14/20 08:56 Dose: 20 mg Documented by: Glucagon () 1 mg IM .X1 PRN PRN Reason: Hypoglycemia Hydralazine HCl (Apresoline Iv) 5 mg IV Q30M PRN PRN Reason: to maintain BP goals Sodium Chloride () 250 mls @ 15 mls/hr IV .[id number] PRN PRN Reason: Saline Flush Sodium Chloride () 250 mls @ 15 mls/hr IV .[id number] PRN PRN Reason: Additional IVPB Infusion Ibuprofen (Motrin) 600 mg PO Q6H PRN PRN PRN Reason: headache Last Admin: 03/13/20 18:10 Dose: 600 mg Documented by: Ketorolac Tromethamine (Toradol (Bkc)) 15 mg IV Q8 [facility] Stop: 03/18/20 20:04 Last Admin: 03/14/20 05:22 Dose: 15 mg Documented by: Labetalol HCl (Trandate) 10 - 20 mg IV Q10M PRN PRN PRN Reason: to maintain BP goals Latanoprost (Xalatan Opthalmic) 1 drop EACH EYE QHS [facility] Last Admin: 03/13/20 21:39 Dose: 1 drop Documented by: Methocarbamol (Robaxin) 1,000 mg PO 4X/DAY [facility] Last Admin: 03/14/20 08:57 Dose: 1,000 mg Documented by: Morphine Sulfate () 2 mg IV Q3H PRN PRN PRN Reason: Pain Score 6-10/10 Nitroglycerin (Nitrostat) 0.4 mg SUBLINGUAL Q5M PRN PRN Reason: CARDIAC/CHEST PAIN Ondansetron HCl (Zofran) 4 mg IV Q8H PRN PRN PRN Reason: NAUSEA/VOMITING Oxycodone HCl (Oxyir) 5 mg PO Q4H PRN PRN PRN Reason: Pain Score 4-5/10 Promethazine HCl (Phenergan) 12.5 mg IV Q4H PRN PRN PRN Reason: NAUSEA/VOMITING Propranolol HCl (Inderal La) 80 mg PO QHS [facility] Last Admin: 03/13/20 21:31 Dose: 80 mg Documented by: Senna/Docusate Sodium (Senokot-S, Bharati-Colace) 2 tablet PO BID PRN PRN PRN Reason: Constipation Sodium Chloride () 10 - 40 ml IV UD PRN PRN Reason: SALINE FLUSH Discharge Activity: Return to Normal Activity Call your doctor if you observe: Fever of 101 or Higher, Numbness or Tingling, Inability to urinate, Inability to have a bowel movement, Using more than one pad per hour, Shortness of breath, Fainting spells, Swelling in the ankles, Chest pain, Prolonged hiccoughing, Increased palpitations (irregular heartbeat) Home Medications: Medications to take at Discharge Latanoprost 0.005% [Xalatan Opthalmic] 1 drop EACH EYE QHS 02/23/14 Propranolol HCl [Inderal LA (Beta Nissa)] 80 mg PO QHS 02/23/14 Atorvastatin Calcium [Lipitor] 40 mg PO QHS #30 tab 03/14/20 cycloBENZAPRine HCl [Flexeril] 5 mg PO TID PRN PRN #20 tab 03/14/20 Following Prescrptions Were Given to Patient: cycloBENZAPRine HCl [Flexeril] 5 mg PO TID PRN PRN #20 tab PRN Reason: muscle spasm Transmission Status: [id number] Atorvastatin Calcium [Lipitor] 40 mg PO QHS #30 tab Transmission Status: [id number] Primary Care Physician: Lonny Payne DO [Primary Care Provider] - Please follow up with your Primary Care Physician in: in 1-2 weeks for elevated TSH 6.19 Please Follow Up With: Raulito Arauz MD When: IN 2-4 WEEKS for Migraine Medical Necessity - Tobacco Use Smoking Status: Never smoker Meaningful Use Info Meaningful Use Diagnoses (Choose all that apply): None applicable OBSV E&M: 08427 Observation care discharge
--- NOTE | 2020-03-14 10:23 | PHA.DC.MC ---
Pharmacy Service has performed discharge medication reconciliation and counseling for this patient. 1. CYCLOBENZAPRINE 5MG PO TID PRN MUSCLE SPASMS 2. ATORVASTATIN 40MG PO QHS The patient's discharge medication list was reviewed for discrepancies and discrepancies were resolved. Home Medications Latanoprost 0.005% [Xalatan Opthalmic] 1 drop EACH EYE QHS 02/23/14 Propranolol HCl [Inderal LA (Beta Nissa)] 80 mg PO QHS 02/23/14 Atorvastatin Calcium [Lipitor] 40 mg PO QHS #30 tab 03/14/20 cycloBENZAPRine HCl [Flexeril] 5 mg PO TID PRN PRN #20 tab 03/14/20 The patient was counseled on the following discharge medications and changes in medications for homegoing were reviewed. The Reason for Use, instructions for use, and potential side effects were reviewed for all new medications. The patient's questions regarding all of their medications were answered. The patient was able to verbally demonstrate an understanding of their discharge medications.
[2020-03-14 10:36] LABS: T4 Free Direct 0.79 ng/dL (0.76-1.46)
[2020-03-14 10:44] VITALS: BMI 33.0
== END 2020-03-14 09:58 | disposition home or self-care (01) ==
LOC: ED 12:03 → PCU 13:10
PROVIDERS: Admitting Provider Internal Medicine; Emergency Provider Emergency Medicine; PCP Family Medicine; Visit Provider Internal Medicine
DX: G43.009 Migraine without aura, not intractable, without status migrainosus (principal); R42 Dizziness and giddiness; H40.9 Unspecified glaucoma; Z79.899 Other long term (current) drug therapy; E78.5 Hyperlipidemia, unspecified; R29.700 NIHSS score 0; I10 Essential (primary) hypertension; R20.2 Paresthesia of skin
CPT/HCPCS: 36415; 70496; 70498; 70551; 71045; 80048; 80061; 80076; 82962; 83036; 83735; 84439; 84443; 84484; 85025; 85610; 85730; 92523; 93005; 94762; 96361; 96372; 96374; 96376; 99218; 99285; J7030; Q9967; A4216; G0378

== ENCOUNTER → 2020-09-14 08:39 | Outpatient (CLI) | payer OTHER, SELFPAY ==
[2020-09-14 13:17] LABS: ALB/GLOB Ratio 1.1 RATIO (0.9-2.4); AST(SGOT) 15 U/L (15-37); Alanine Aminotransfer ALT/SGPT 33 U/L (13-56); Albumin, Serum 3.8 g/dL (3.2-5.0); Alkaline Phosphatase 180 U/L (45-117); Anion Gap 4 (5-15); BUN 15 mg/dL (7-18); BUN/Creat Ratio 13.4 RATIO (10-20); Calcium,Total 8.9 mg/dL (8.5-10.1); Chloride 109 mmol/L (98-107); Cholesterol 215 mg/dL (200); Creatinine, Serum 1.12 mg/dL (0.55-1.02); EST Glomerular Filtration Rate 53 mL/min (>60); Est Glom Filt Rate - Afr Amer 64 mL/min (>60); Globulin 3.4 g/dL (2.2-4.2); Glucose 110 mg/dL (74-106); High Density Lipoprotein 49 mg/dL; Potassium 4.2 mmol/L (3.5-5.1); Protein, Total 7.2 g/dL (6.4-8.2); Sodium Level 141 mmol/L (136-145); T4 Free Direct 0.87 ng/dL (0.76-1.46); Thyroid Stim Hormone (TSH) 3.17 uIU/mL (0.358-3.74); Triglycerides 222 mg/dL; Very Low Density Lipoprotein 44 mg/dL (5-40)
[2020-09-15 14:09] LABS: Thyroid Peroxidase AB 95 IU/mL (0-34)
[2020-09-15 16:48] LABS: Thyroglobulin Antibody < 1.0 IU/mL (0.0-0.9)
== END ==
PROVIDERS: PCP Family Medicine; Visit Provider Family Medicine
DX: I10 Essential (primary) hypertension (principal); E01.0 Iodine-deficiency related diffuse (endemic) goiter; R74.8 Abnormal levels of other serum enzymes; K75.81 Nonalcoholic steatohepatitis (NASH)
CPT/HCPCS: 36415; 80053; 80061; 84439; 84443; 86376; 86800

== ENCOUNTER → 2021-02-13 14:24 | Outpatient (CLI) | payer OTHER, SELFPAY ==
--- NOTE | 2021-02-13 14:29 | BI_ITS ---
MAMMOGRAPHY - BILATERAL SCREENING REASON FOR EXAM: Female, 61 years old. Routine annual screening examination. PERTINENT HISTORY: Grandmother with breast cancer. Aunt with breast cancer. TECHNIQUE: Digital bilateral breast mary ellen (3D mammographic acquisition) in the CC and MLO projections. 2-D mediolateral oblique (MLO) and craniocaudad (CC) views of both breasts were obtained. CAD: Full Field Digital Mammography with Computer Added Detection was performed. COMPARISON: Comparison is made with prior examinations dated 05/05/2020 and 10/19/2018. FINDINGS: Breast Composition: The breasts are almost entirely fatty. There are no dominant masses or suspicious calcifications. No other significant abnormalities are identified. There has been no significant change since the prior study. BI/SCRN MAMM (CAD)W/MARY ELLEN BILAT IMPRESSION: Stable bilateral screening mammogram. Yearly follow-up mammogram recommended. (A) ASSESSMENT CATEGORY: BIRADS Category 1: Negative. A letter regarding these results will be sent to the patient by the facility within 30 days. Approximately 10% of breast cancers are not detected by mammography. A normal mammogram should not delay biopsy of a clinically suspicious abnormality. [id number] Electronically Signed: Art Logan MD at 15:38 EDT , Service support ,
--- NOTE | 2021-02-13 14:32 | BD_ITS ---
STUDY: DUAL ENERGY X-RAY ABSORPTIOMETRY / DXA REASON FOR EXAM: Female, 61 years old. Z780. Early menopause. Loss of height. TECHNIQUE: Bone Mineral Density (BMD) measurements of lumbar spine and bilateral hips were obtained. COMPARISON: Comparison is made with prior study dated 12/05/2009. FINDINGS: Lumbar Spine (L1-L4): g/cm2 (0.931) / T-score (-2.1) / Z-score (-0.7) Findings are suggestive of osteopenia with a high fracture risk. Left Femur Total: g/cm2 (0.967) / T-score (-0.3) / Z-score (0.7) Left Femoral Neck: g/cm2 (0.769) / T-score (-1.9) / Z-score (-0.6) Right Femur Total: g/cm2 (0.947) / T-score (-0.5) / Z-score (0.5) Right Femoral Neck: g/cm2 (0.777) / T-score (-1.9) / Z-score (-0.6) The T-Scores on the most recent prior examination were: Lumbar Spine (L1-L4): There has been worsening of bone density since the previous examination. Left Femur Total: which represents a worsening of 1.1%. Right Femur Total: which represents a worsening of 1.4%. BD/Dexa Bone Density Study IMPRESSION: The patient is considered osteopenic as outlined below according to World Donald Organization (WHO) criteria with a high fracture risk. There has been worsening of bone density since the previous examination. Reference Information: The T-score is the number of standard deviations above or below the standard which is normal for young adults at their peak bone mineral density. The World Health Organization (WHO) interprets the T-scores as follows: Above -1 Normal bone density Between -1 and -2.5 Osteopenia Equal to / or below -2.5 Osteoporosis As a practical clinical guideline, osteopenia may be graded as follows: Mild -1 through -1.5 Moderate -1.6 through -2.0 Severe -2.1 through -2.4 The Z-score is the number of standard deviations above or below age-matched controls. A Z-score of less than -1.5 would be considered abnormal. References: 1. NIH Osteoporosis and Related Bone Diseases www osteo.org 2. International Society for Clinical Densitometry www iscd.org 3. National Osteoporosis Foundation www nof.org Electronically Signed: Art Logan MD at 9:43 EDT , Service support ,
== END ==
PROVIDERS: PCP Family Medicine; Referring Provider Student in an Organized Health Care Education/Training Program; Visit Provider Student in an Organized Health Care Education/Training Program
DX: Z12.31 Encounter for screening mammogram for malignant neoplasm of breast (principal); Z78.0 Asymptomatic menopausal state
CPT/HCPCS: 77063; 77067; 77080

== ENCOUNTER → 2021-03-26 08:39 | Outpatient (CLI) | payer OTHER, SELFPAY ==
[2021-03-26 10:07] LABS: Absolute Lymphocyte Count 1.67 X10^3/uL (0.83-4.51); Basophil# 0.04 X10^3/uL; Basophil% 0.7 % (0-1); Eosinophil# 0.18 X10^3/uL; Eosinophils% 3.4 % (0-5); Hematocrit 42.7 % (37-47); Hemoglobin 13.8 g/dL (12.0-15.0); Lymphocyte # 1.67 X10^3/ul (0.83-4.51); Lymphocyte % 31.2 % (19-41); Mean Corp Hgb Conc 32.3 g/dL (32-36); Mean Corpuscular Hgb 29.4 pg (27.0-32.0); Mean Corpuscular Volume 90.9 fL (81-99); Mean Platelet Vol. 9.5 fl (6.2-12.0); Monocyte# 0.42 X10^3/uL; Monocyte% 7.9 % (0-10); NRBC Flagged by Analyzer 0 % (0-5); Neutrophil # 3.03 X10^3/uL (2.7-7.7); Neutrophil % 56.6 % (47-70); Platelet Count 249 K/mm3 (150-450); RBC Distribution Width CV 12.7 % (11.6-14.6); RBC Distribution Width SD 42.3 fl (35.1-43.9); White Blood Count 5.4 K/mm3 (4.4-11.0)
[2021-03-26 10:24] LABS: Hemoglobin A1c 5.5 % (3.8-5.6)
[2021-03-26 10:36] LABS: ALB/GLOB Ratio 1.1 RATIO (0.9-2.4); AST(SGOT) 17 U/L (15-37); Alanine Aminotransfer ALT/SGPT 32 U/L (13-56); Albumin, Serum 3.6 g/dL (3.2-5.0); Alkaline Phosphatase 204 U/L (45-117); Anion Gap 6 (5-15); BUN 12 mg/dL (7-18); BUN/Creat Ratio 12.2 RATIO (10-20); Calcium,Total 8.7 mg/dL (8.5-10.1); Chloride 105 mmol/L (98-107); Cholesterol 200 mg/dL (200); Creatinine, Serum 0.99 mg/dL (0.55-1.02); EST Glomerular Filtration Rate 61 mL/min (>60); Est Glom Filt Rate - Afr Amer 73 mL/min (>60); Globulin 3.4 g/dL (2.2-4.2); Glucose 113 mg/dL (74-106); High Density Lipoprotein 46 mg/dL; Potassium 4.2 mmol/L (3.5-5.1); Sodium Level 141 mmol/L (136-145); T4 Free Direct 0.77 ng/dL (0.76-1.46); Thyroid Stim Hormone (TSH) 8.16 uIU/mL (0.358-3.74); Triglycerides 184 mg/dL; Very Low Density Lipoprotein 37 mg/dL (5-40)
== END ==
PROVIDERS: PCP Family Medicine; Referring Provider Family Medicine; Visit Provider Family Medicine
DX: Z00.00 Encounter for general adult medical examination without abnormal findings (principal); E06.3 Autoimmune thyroiditis; R73.01 Impaired fasting glucose
CPT/HCPCS: 36415; 80053; 80061; 83036; 84439; 84443; 85025

== ENCOUNTER 2021-11-23 07:50 | Outpatient (CLI) | payer OTHER, SELFPAY ==
[2021-11-23 10:26] LABS: T4 Free Direct 0.76 ng/dL (0.76-1.46); Thyroid Stim Hormone (TSH) 5.77 uIU/mL (0.358-3.74)
== END 2021-11-23 23:59 | disposition home or self-care (01) ==
LOC: MTLAB 07:52
PROVIDERS: PCP Family Medicine; Referring Provider Family Medicine; Visit Provider Family Medicine
DX: E06.3 Autoimmune thyroiditis (principal)
CPT/HCPCS: 36415; 84439; 84443

== ENCOUNTER → 2022-02-06 | Outpatient (CLI) | payer OTHER, SELFPAY ==
[2022-02-06 10:52] LABS: ALB/GLOB Ratio 1.1 RATIO (0.9-2.4); AST(SGOT) 19 U/L (15-37); Alanine Aminotransfer ALT/SGPT 36 U/L (13-56); Alkaline Phosphatase 206 U/L (45-117); Anion Gap 7 (5-15); BUN 17 mg/dL (7-18); BUN/Creat Ratio 15.5 RATIO (10-20); Chloride 105 mmol/L (98-107); EST Glomerular Filtration Rate 53 mL/min (>60); Est Glom Filt Rate - Afr Amer 65 mL/min (>60); Globulin 3.7 g/dL (2.2-4.2); Glucose 98 mg/dL (74-106); Potassium 4.3 mmol/L (3.5-5.1); Protein, Total 7.7 g/dL (6.4-8.2); Sodium Level 140 mmol/L (136-145); T4 Free Direct 1.08 ng/dL (0.76-1.46); Thyroid Stim Hormone (TSH) 1.89 uIU/mL (0.358-3.74)
== END | disposition home or self-care (01) ==
PROVIDERS: PCP Family Medicine; Referring Provider Family Medicine; Visit Provider Family Medicine
DX: I10 Essential (primary) hypertension (principal); E06.3 Autoimmune thyroiditis
CPT/HCPCS: 36415; 80053; 84439; 84443

== ENCOUNTER → 2022-05-20 | Outpatient (CLI) | payer OTHER, SELFPAY ==
[2022-05-20 10:11] LABS: Absolute Lymphocyte Count 1.73 X10^3/uL (0.83-4.51); Absolute Neutrophil Count 2.5 X10^3/uL (2.0-7.7); Basophil# 0.05 X10^3/uL; Eosinophil# 0.17 X10^3/uL; Eosinophils% 3.5 % (0-5); Hematocrit 40.1 % (37-47); Hemoglobin 13.4 g/dL (12.0-15.0); Lymphocyte # 1.73 X10^3/ul (0.83-4.51); Lymphocyte % 35.8 % (19-41); Mean Corp Hgb Conc 33.4 g/dL (32-36); Mean Corpuscular Hgb 30.7 pg (27.0-32.0); Mean Corpuscular Volume 91.8 fL (81-99); Mean Platelet Vol. 9.7 fl (6.2-12.0); Monocyte# 0.35 X10^3/uL; Monocyte% 7.2 % (0-10); NRBC Flagged by Analyzer 0 % (0-5); Neutrophil # 2.52 X10^3/uL (2.7-7.7); Neutrophil % 52.3 % (47-70); Platelet Count 208 K/mm3 (150-450); RBC Distribution Width CV 12.9 % (11.6-14.6); RBC Distribution Width SD 42.8 fl (35.1-43.9); Red Blood Count 4.37 M/mm3 (4.2-5.4); White Blood Count 4.8 K/mm3 (4.4-11.0)
[2022-05-20 10:39] LABS: ALB/GLOB Ratio 0.9 RATIO (0.9-2.4); AST(SGOT) 17 U/L (15-37); Alanine Aminotransfer ALT/SGPT 28 U/L (13-56); Albumin, Serum 3.3 g/dL (3.2-5.0); Alkaline Phosphatase 207 U/L (45-117); Anion Gap 3 (5-15); BUN 17 mg/dL (7-18); BUN/Creat Ratio 17.8 RATIO (10-20); Calcium,Total 8.4 mg/dL (8.5-10.1); Chloride 111 mmol/L (98-107); Cholesterol 198 mg/dL (200); Creatinine, Serum 0.96 mg/dL (0.55-1.02); EST Glomerular Filtration Rate 63 mL/min (>60); Est Glom Filt Rate - Afr Amer 76 mL/min (>60); Globulin 3.5 g/dL (2.2-4.2); Glucose 113 mg/dL (74-106); High Density Lipoprotein 44 mg/dL; Potassium 4.3 mmol/L (3.5-5.1); Protein, Total 6.8 g/dL (6.4-8.2); Sodium Level 141 mmol/L (136-145); T4 Free Direct 1.02 ng/dL (0.76-1.46); Thyroid Stim Hormone (TSH) 2.09 uIU/mL (0.358-3.74); Triglycerides 159 mg/dL; Very Low Density Lipoprotein 32 mg/dL (5-40)
== END | disposition home or self-care (01) ==
PROVIDERS: PCP Family Medicine; Referring Provider Family Medicine; Visit Provider Family Medicine
DX: Z00.00 Encounter for general adult medical examination without abnormal findings (principal); E06.3 Autoimmune thyroiditis
CPT/HCPCS: 36415; 80053; 80061; 84439; 84443; 85025

== ENCOUNTER 2022-07-06 13:59 | Emergency (ER) | payer OTHER, SELFPAY ==
[2022-07-06 13:59] VITALS: BP 150/78; PULSE 67; RESP 14; TEMP 36.6; O2SAT 98; BMI 36.2
--- NOTE | 2022-07-06 14:19 | RAD_ITS ---
STUDY: X-RAY CHEST REASON FOR EXAM: Female, 62 years old. Chest pain/pressure TECHNIQUE: PA and lateral views of the chest. COMPARISON: 03/13/2020 FINDINGS: EKG leads overlie the chest The lungs are clear and expanded. There is no demonstrated pleural abnormality. Normal size heart. Normal mediastinum and debbie. Normal visualized pulmonary arteries. Normal visualized aortic arch and descending thoracic aorta. Normal visualized thoracic spine. Normal visualized ribs, clavicles, and shoulders. There is no demonstrated abnormality of the visualized soft tissue structures of the upper abdomen. RAD/Chest PA and Lateral IMPRESSION: Normal x-ray examination of the chest. Electronically Signed: Gallito Lopez MD at 14:35 EDT ,
--- NOTE | 2022-07-06 14:19 | EKG12_ITS ---
Test Reason : CP Blood Pressure : / mmHG Vent. Rate : 067 BPM Atrial Rate : 067 BPM P-R Int : 174 ms QRS Dur : 088 ms QT Int : 412 ms P-R-T Axes : 049 036 065 degrees QTc Int : 435 ms Normal sinus rhythm Nonspecific T wave abnormality Abnormal ECG Confirmed by EVERETT PARRISH, CHELLY ([id number]), order editor RUSSELL DIGGS ([id number]) on 07/10/2022 9:19:24 AM Referred By: HAIDER Confirmed By:CHELLY FLOYD MD
[2022-07-06 14:30] LABS: Absolute Lymphocyte Count 1.91 X10^3/uL (0.83-4.51); Absolute Neutrophil Count 4.5 X10^3/uL (2.0-7.7); Basophil# 0.04 X10^3/uL; Basophil% 0.6 % (0-1); Eosinophils% 2.8 % (0-5); Hematocrit 43.2 % (37-47); Hemoglobin 14.2 g/dL (12.0-15.0); Lymphocyte # 1.91 X10^3/ul (0.83-4.51); Lymphocyte % 26.8 % (19-41); Mean Corp Hgb Conc 32.9 g/dL (32-36); Mean Corpuscular Hgb 29.8 pg (27.0-32.0); Mean Corpuscular Volume 90.8 fL (81-99); Mean Platelet Vol. 9.5 fl (6.2-12.0); Monocyte# 0.41 X10^3/uL; Monocyte% 5.8 % (0-10); NRBC Flagged by Analyzer 0 % (0-5); Neutrophil # 4.54 X10^3/uL (2.7-7.7); Neutrophil % 63.7 % (47-70); Platelet Count 274 K/mm3 (150-450); RBC Distribution Width CV 12.9 % (11.6-14.6); RBC Distribution Width SD 42.5 fl (35.1-43.9); Red Blood Count 4.76 M/mm3 (4.2-5.4); White Blood Count 7.1 K/mm3 (4.4-11.0)
--- NOTE | 2022-07-06 14:38 | EX.ED.DYSGE1 ---
HPI History of Present Illness Chief Complaint: Chest Pain Detail of Chief Complaint: Heartburn indigestion last evening chest tightnessToday Informant: patient, spouse/S.O. and family Onset/Context/Timing Onset: Today and Yesterday Context: Sudden Onset Timing: Intermittent Quality: Heartburn indigestion radiating through the back that awoke patient at 0230 Location: Chest tightness with dyspnea and right-sided jaw numbness with bilateral ja Current Severity: Gone Maximum Severity: Moderate Worsened by: Nothing Relieved by: Nothing Associated Symptoms Associated Symptoms: Shortness of breath with chest discomfort today and bilateral jaw pain with Narrative Narrative: Patient is a 62-year-old woman with history hypertension and hyperlipidemia who presents with indigestion heartburn that awoke her from sleep at 0200. She had 2 pieces of pizza for dinner. She denies history of biliary disease. There is no family history of biliary disease. She denies fever, chills night sweats. The discomfort did radiate through to her back. There is no radiation to her jaw or neck. That discomfort lasted for approximately 30 minutes. She denies black or maroon-colored stool. She denies history of hiatal hernia, reflux or peptic ulcer disease. Today while driving she developed tightness in the middle of her chest with a positive Meraz sign that radiated to the right side of her jaw and then bilateral with numbness on the right side of the jaw. She was short of breath. This episode lasted approximately 30 minutes. She had no other symptoms. She denies fever, chills night sweats. She denies upper respiratory symptoms. Denies history of VTE. Denies leg pain, swelling discoloration. There is no history of trauma. Prior similar symptoms: No Recent Illness/Hospitalization: No [facility] Medical History HTN (hypertension) Hypothyroid Home Medications latanoprost 0.005 % eye drops 1 drp QHS glaucoma 02/23/14 [History Last Taken 03/12/20] propranolol 80 mg capsule,24 hr,extended release (Inderal LA) 80 mg PO QHS blood pressure 02/23/14 [History Last Taken 03/12/20] atorvastatin 40 mg tablet 40 mg PO QHS #30 tabs 03/14/20 [Rx Last Taken Unknown] cyclobenzaprine 10 mg tablet 5 mg PO TID PRN PRN muscle spasm #20 tabs 03/14/20 [Rx Last Taken Unknown] Allergy/AdvReac Type Severity Reaction Status Date / Time No Known Allergies Allergy Verified 03/13/20 09:28 Surgical History H/O knee surgery H/O: hysterectomy Hx of appendectomy Social History (Updated 07/06/22 @ 14:[address] Ulises Retana MD) household members: spouse Smoking Status: Never smoker substance use type: does not use ROS ROS ED Constitutional Constitutional ED: Denies chills, fever(s), subjective, sweats or weight loss Eyes Eyes: Denies blurry vision, change in vision or diplopia ENT ENT ED: Denies ear pain, rhinorrhea or sore throat Cardiovascular Cardiovascular: Reports chest pain; Denies orthopnea, palpitations, paroxysmal nocturnal dyspnea or racing heartbeat Respiratory/Chest Respiratory/Chest: Reports dyspnea; Denies cough, dyspnea on exertion, orthopnea or paroxysmal nocturnal dyspnea Gastrointestinal Gastrointestinal: Reports abdominal pain and nausea; Denies constipation, diarrhea, melena or vomiting Genitourinary Genitourinary ED: Denies dysuria, hematuria or urinary frequency Musculoskeletal Musculoskeletal: Denies arthralgias, back pain, myalgias or neck pain Integumentary Denies Abrasions or rash Neurologic Neurologic: Denies headache(s) or paresthesias Hematologic/Lymphatic Hematologic/Lymphatic: Reports systems reviewed and no addt'l complaints, except as documented and as per HPI EXAM Physical Exam Const Vital Signs: 07/06/22 13:59 07/06/22 15:22 07/06/22 16:17 Temperature 97.8 F Temperature Source Temporal Pulse Rate 67 67 67 Respiratory Rate 14 13 15 Blood Pressure 150/78 H 127/75 H 123/71 H Blood Pressure Mean 102 92 88 Pulse Ox 98 97 98 Oxygen Delivery Method Room Air Room Air Room Air 07/06/22 16:45 07/06/22 17:00 Temperature Temperature Source Pulse Rate 63 56 L Respiratory Rate 16 12 Blood Pressure 129/70 H 123/65 H Blood Pressure Mean 89 84 Pulse Ox 96 97 Oxygen Delivery Method Room Air Room Air Positive well nourished, well developed and obese General Appearance ED: well developed and NAD; Negative for cyanotic, diaphoretic or pallor Nutritional Appearance: obese HEENT Reports moist mucous membranes HEENT Narrative: Head is atraumatic no cephalic. Ears normal. Nares patent. Uvula midline. No deviation of protrusion. No erythema or exudate. Eyes PERRL and EOMs intact bilaterally General Eye ED: Negative for pale conjunctiva or scleral icterus Neck no lymphadenopathy, supple and no JVD Chest Wall inspection of chest normal and palpation of chest normal Resp normal respiratory effort and clear to auscultation bilaterally Cardio regular rate, regular rhythm, S1 normal heart sound, S2 normal heart sound and no murmurs GI normal to inspection, nondistended, normoactive bowel sounds, non-tender, non-distended and no masses; Negative for hepatosplenomegaly GI Narrative: Negative Rivera sign. No palp pulsatile mass or abdominal bruit. Back/Spine no CVA tenderness General Back: Negative for CVA tenderness Cervical Spine: Negative for cervical spine tenderness Thoracic Spine / Upper Back: Negative for thoracic spinal tenderness Extremity normal to inspection Extremity Narrative: There is no asymmetry, swelling, discoloration, leg vein distention, palpable cords or tenderness along the distribution of the deep venous system. Neuro oriented x3 Sensorium / Orientation: alert Motor Exam: strength 5/5 throughout Psych mental status grossly normal Skin no rashes or lesions noted, no wounds and skin turgor normal General Skin Exam: Negative for jaundice or pallor MDM MDM MDM Narrative Medical decision making narrative: Episode of discomfort that occurred at 0200 may represent biliary colic versus reflux. The chest discomfort patient experienced while driving which is described as a tightness with dyspnea and radiation to the jaw raises concern for cardiac versus GI. To evaluate her presentation EKG was obtained with initial and 2-hour troponin as well as hepatic enzymes and lipase. Was troponin is 3. Second troponin is 4. Delta is 1. Since both are less than 7 negative predictive value is 100%. Therefore patient be discharged to home with appropriate home-going instructions for GERD Lab Data Attestation: I reviewed the patient's lab results. Labs: Laboratory Results - last 24 hr 07/06/22 07/06/22 07/06/22 14:04 14:04 14:04 WBC 7.1 RBC 4.76 Hgb 14.2 Hct 43.2 MCV 90.8 MCH 29.8 MCHC 32.9 RDW Std Deviation 42.5 RDW Coeff of Gisselle 12.9 Plt Count 274 MPV 9.5 Immature Gran % (Auto) 0.300 Neut % (Auto) 63.7 Lymph % (Auto) 26.8 Talbot % (Auto) 5.8 Eos % (Auto) 2.8 Baso % (Auto) 0.6 Absolute Neuts (auto) 4.5 Absolute Lymphs (auto) 1.91 Nucleated RBC % 0 Sodium 142 Potassium 4.3 Chloride 106 Carbon Dioxide 28.0 Anion Gap 8 BUN 17 Creatinine 1.39 H Estim Creat Clear Calc 32.76 Est GFR (MDRD) Af Amer 49 L Est GFR (MDRD) Non-Af 41 L BUN/Creatinine Ratio 12.2 Glucose 115 H Calcium 9.4 Total Bilirubin 0.20 Direct Bilirubin 0.05 AST 20 ALT 35 Alkaline Phosphatase 206 H Troponin I High Sens 3 Cancelled Total Protein 7.8 Albumin 3.8 Globulin 4.0 Lipase 122 07/06/22 16:15 WBC RBC Hgb Hct MCV MCH MCHC RDW Std Deviation RDW Coeff of Gisselle Plt Count MPV Immature Gran % (Auto) Neut % (Auto) Lymph % (Auto) Talbot % (Auto) Eos % (Auto) Baso % (Auto) Absolute Neuts (auto) Absolute Lymphs (auto) Nucleated RBC % Sodium Potassium Chloride Carbon Dioxide Anion Gap BUN Creatinine Estim Creat Clear Calc Est GFR (MDRD) Af Amer Est GFR (MDRD) Non-Af BUN/Creatinine Ratio Glucose Calcium Total Bilirubin Direct Bilirubin AST ALT Alkaline Phosphatase Troponin I High Sens 4 Total Protein Albumin Globulin Lipase Radiography Chest X-Ray - ED: Read by ED Physician Diagnostic Testing: Clinical Impression(s) from Imaging Studies Chest X-Ray 07/06/22 14:19 IMPRESSION: Normal x-ray examination of the chest. Electronically Signed: Gallito Lopez MD at 14:35 EDT , EKG Initial EKG: Attestation: I personally reviewed and interpreted this EKG as follows: Interpretation: Sinus Rhythm (Ventricular rate 67. UT interval is 174 ms. QS duration 88 ms. QT duration 112 ms. [place] is normal. Computer is reading ossific T wave abnormalities. EKG is normal.) Discharge Plan Triage Chief Complaint: Chest Pain ED Provider: Ulises Retana Dx/Rx/DC Orders Clinical Impression: Chest pressure, Chest pain due to GERD Instructions: ED GERD (Adult) Prescriptions: No Action latanoprost 1 DROP bottle 1 drp Each Eye QHS propranolol [Inderal LA] 80 MG Cap.Sa.24h 80 mg PO QHS atorvastatin 40 MG tablet 40 mg PO QHS Qty: 30 1RF cyclobenzaprine 10 MG tablet 5 mg PO TID PRN PRN (Reason: muscle spasm) Qty: 20 0RF Primary Care Provider: Lonny Payne Referrals: Lonny Payne, [Primary Care Provider] - 3-5 Days if not improving Disposition Disposition: Home, Self Care
[2022-07-06 14:51] LABS: AST(SGOT) 20 U/L (15-37); Alanine Aminotransfer ALT/SGPT 35 U/L (13-56); Albumin, Serum 3.8 g/dL (3.2-5.0); Alkaline Phosphatase 206 U/L (45-117); Anion Gap 8 (5-15); BUN 17 mg/dL (7-18); BUN/Creat Ratio 12.2 RATIO (10-20); Bilirubin, Direct 0.05 mg/dL (0.00-0.30); Calcium,Total 9.4 mg/dL (8.5-10.1); Chloride 106 mmol/L (98-107); Creatinine, Serum 1.39 mg/dL (0.55-1.02); EST Glomerular Filtration Rate 41 mL/min (>60); Est Glom Filt Rate - Afr Amer 49 mL/min (>60); Estimated Creatinine Clearance 32.76 ml/min; Glucose 115 mg/dL (74-106); Lipase 122 U/L (73-393); Potassium 4.3 mmol/L (3.5-5.1); Protein, Total 7.8 g/dL (6.4-8.2); Sodium Level 142 mmol/L (136-145); Troponin-I HS 3 pg/mL (3.0-54.0)
[2022-07-06 15:22] VITALS: BP 127/75; PULSE 67; RESP 13; O2SAT 97
[2022-07-06 16:17] VITALS: BP 123/71; PULSE 67; RESP 15; O2SAT 98
[2022-07-06 16:37] LABS: Troponin-I HS 4 pg/mL (3.0-54.0)
[2022-07-06 16:45] VITALS: BP 129/70; PULSE 63; RESP 16; O2SAT 96
[2022-07-06] MEDS: Ibuprofen 400 MG Tablet 800 MG PO (16:51)
[2022-07-06 17:00] VITALS: BP 123/65; PULSE 56; RESP 12; O2SAT 97
[2022-07-06 18:20] VITALS: BP 123/53; PULSE 54; RESP 16; O2SAT 97
== END 2022-07-06 18:22 | disposition home or self-care (01) ==
PROVIDERS: Emergency Provider Emergency Medicine; PCP Family Medicine; Visit Provider Emergency Medicine
DX: K21.9 Gastro-esophageal reflux disease without esophagitis (principal); R07.89 Other chest pain; R06.02 Shortness of breath; I10 Essential (primary) hypertension; E78.5 Hyperlipidemia, unspecified; R12 Heartburn; E66.9 Obesity, unspecified; Z79.899 Other long term (current) drug therapy
CPT/HCPCS: 71046; 80048; 80076; 83690; 84484; 85025; 93005; 99284; A4216

== ENCOUNTER → 2022-07-19 | Outpatient (CLI) | payer OTHER, SELFPAY ==
--- NOTE | 2022-07-19 07:25 | BI_ITS ---
MAMMOGRAPHY - BILATERAL SCREENING REASON FOR EXAM: Female, 62 years old. Routine annual screening examination. PERTINENT HISTORY: Grandmother with breast cancer. Aunts with breast cancer. TECHNIQUE: Digital bilateral breast mary ellen (3D mammographic acquisition) in the CC and MLO projections. 2-D mediolateral oblique (MLO) and craniocaudad (CC) views of both breasts were obtained. CAD: Full Field Digital Mammography with Computer Added Detection was performed. COMPARISON: Comparison is made with prior study dated 02/13/2021 and 11/05/2019. FINDINGS: Breast Composition: The breasts are almost entirely fatty. There are no dominant masses or suspicious calcifications. No other significant abnormalities are identified. There has been no significant change since the prior study. BI/SCRN MAMM (CAD)W/MARY ELLEN BILAT IMPRESSION: Stable bilateral screening mammogram. Yearly follow-up mammogram recommended. (A) ASSESSMENT CATEGORY: BIRADS Category 1: Negative. A letter regarding these results will be sent to the patient by the facility within 30 days. Approximately 10% of breast cancers are not detected by mammography. A normal mammogram should not delay biopsy of a clinically suspicious abnormality. [id number] Electronically Signed: Art Logan MD at 8:47 EDT ,
== END | disposition home or self-care (01) ==
LOC: OPBI 07:24
PROVIDERS: PCP Family Medicine; Visit Provider Family Medicine
DX: Z12.31 Encounter for screening mammogram for malignant neoplasm of breast (principal)
CPT/HCPCS: 77063; 77067

== ENCOUNTER → 2022-07-30 | Outpatient (CLI) | payer OTHER, SELFPAY ==
--- NOTE | 2022-07-30 12:45 | STEWCON_ITS ---
Reason For Study: Chest Pain Stress Results Protocol: Juliocesar Protocol WITH DEFINITY Maximum Predicted HR: 157 bpm Target HR: 133 bpm % Maximum Predicted HR: 93 % DurationHeart Rate Stage (mm:ss) (bpm) BP Comment Baseline 72 134/70No Chest Pain: 4 ML Diluted Definity Juliocesar Protocol Stage I 3:00 109 132/72No Chest Pain Juliocesar Protocol Stage II 3:00 126 144/68No Chest Pain; Mild Dyspnea Juliocesar Protocol Stage III 3:00 146 160/72No Chest Pain; Mod Dyspnea Recovery 95 110/62No Chest Pain Stress Duration: 9:00 mm:ss Maximum Stress HR: 146 bpm METS: 10 Baseline Echocardiogram Findings Stress Echo Wall motion Data Resting WM Intermediate WM Stress WM Resting Wall Motion Wall Motion Stress All segments Normal. All segments Hyperkinetic. Ejection Fraction 55 %. Ejection Fraction 65 %. Stress Results Heart rate response: Technically adequate: Percent predicted maximal heart rate greater than 85% Blood pressure: Resting blood pressure: Borderline elevation-appropriate response Cardiac rhythm: Isolated PVC during exercise and rare PVC during recovery Functional capacity: Good Stopped secondary to: Dyspnea. EKG Data Baseline ECG: Normal sinus rhythm. Peak exercise ECG: Somatic/motion artifact with no obvious ECG changes. Symptoms with Stress No complaint of chest discomfort during exercise or recovery. ECHO/Stress Test Echo W/Contrast Interpretation Summary Contrast injection performed Negative (technically adequate) stress echocardiogram Ordering Physician: Lonny Payne Referring Physician: Lonny Payne Performed By: Marycarmen Callahan RDCS
== END | disposition home or self-care (01) ==
LOC: CVS 12:42
PROVIDERS: PCP Family Medicine; Referring Provider Family Medicine; Visit Provider Family Medicine
DX: R07.9 Chest pain, unspecified (principal)
CPT/HCPCS: 93017; 93350; Q9957; A4216; C8928

== ENCOUNTER → 2022-08-08 | Outpatient (CLI) | payer OTHER, SELFPAY ==
--- NOTE | 2022-08-08 14:32 | RAD_ITS ---
EXAM: XR LEFT ANKLE COMPLETE, 3 OR MORE VIEWS CLINICAL INDICATION: PAIN ANKLE TECHNIQUE: Frontal, lateral and oblique views of the left ankle. This report was created using [employer] report generation technology. COMPARISON: None. FINDINGS: BONES/JOINTS: Unremarkable. No acute fracture. No subluxation. Normal alignment. Preservation of the joint space. No sclerotic or destructive changes observed. SOFT TISSUES: Unremarkable. No soft tissue swelling or gas. No radiopaque foreign body. RAD/Ankle min 3 Views IMPRESSION: Negative left ankle x-rays. Electronically Signed: Delta Moody MD at 20:27 EDT ,
== END | disposition home or self-care (01) ==
LOC: MTRAD 14:31
PROVIDERS: PCP Family Medicine; Referring Provider Family Medicine; Visit Provider Family Medicine
DX: M25.572 Pain in left ankle and joints of left foot (principal)
CPT/HCPCS: 73610

== ENCOUNTER → 2022-11-11 | Outpatient (CLI) | payer OTHER, SELFPAY ==
--- NOTE | 2022-11-11 15:32 | RAD_ITS ---
INDICATION: fall 2 months ago, left elbow persistent pain EXAMINATION/TECHNIQUE: X-RAY - XR Elbow Min 3 Views 3 IMAGES COMPARISON: None. LIMITATIONS: None. FINDINGS: BONES: No fracture demonstrated. JOINTS: No dislocation. SOFT TISSUES: Unremarkable. RAD/Elbow min 3 Views IMPRESSION: No evidence of fracture. Electronically Signed: Tamie Hurt MD at 7:52 EST ,
== END | disposition home or self-care (01) ==
LOC: MTRAD 15:25
PROVIDERS: PCP Family Medicine; Referring Provider Family Medicine; Visit Provider Family Medicine
DX: M25.522 Pain in left elbow (principal)
CPT/HCPCS: 73080

== ENCOUNTER 2023-01-02 08:30 | Outpatient (RCR) | payer OTHER, SELFPAY ==
--- NOTE | 2022-12-23 13:56 | HP.PTEVAL_ITS ---
Patient's Visit Information ANNE MARIE HOSKINS is a 62 year old F referred to Physical Therapy by Dr. Lonny Payne DO with a diagnosis of L lateral epicondylitis. Date of Evaluation: 12/16/22 Physical Therapist: Jasbir King DPT - Visit Plan Frequency: 2x /Week Duration: 4 Weeks Plan: Start with DFM to L lateral epicondyle, eccentric wrist extension 2#, wrist extensor stretch. Add in scapular and triceps strengthening. - Subjective Pt. is here today for her initial evaluation with L elbow pain. Pt. reports no mech of injury, but has had increased pain for a few months now. Pt. reports having similar issues previously, but did go away. She has increased pain with wrist extension, gripping and lifting. She did have a recent injection which has helped. She had some burning, which has reduced, but is still having pain. Pt. does have some pain with sleeping, but not much. Pt. - Pain L elbow Pain Intensity (Out of 10): 4 Pain Intensity Range: 2, 6 - Objective POSTURE: Pt. has normal posture, pt. has normal elbow positioning, no guarding in stance or with walking. PALPATION: Pt. is very tender at L lateral epicondyle. Pt. has some pain going over the posterior/lateral aspect. NEURO: Normal, normal sensation and DTR. ROM: PT. has normal elbow and shoulder ROM. Pt. has some mild tenderness at full L elbow flexion at lateral epicondyle. MMT: shoulder 5/5 throughout. mild increase in symptoms with wrist extension; rest of ROM without increase in symptoms. No pain with all shoulder testing. - Special Tests L Elbow Valgus Stress Test - MCL Instability: Negative L Elbow Varus Stress Stest - MCL Instability: Negative L Elbow Lat Epiconylitis - as named: Positive Comments: + cozens test on L side - Balance/Special Test Scores Quick DASH Score: 31.8175 - Goals Goal 1:: LTG: Pt. to be I with HEP. Goal Time Frame: 4-6 Weeks Goal 2:: STG: Pt. to be able to drum sander offbearer objects without increase in symptoms. Goal 3:: LTG: pt. to be able to complete all ADLs and all fine motor work ie sewing and crocheting without increase in symptoms. Goal Time Frame: 4-6 Weeks Goal 4:: LTG: Pt. to 5/5 L UE strength without increase in symptoms. Goal Time Frame: 4-6 Weeks - Rehabilitation Potential Physical Therapy Diagnosis: Pt. has signs and symptoms consistent with L lateral epicondylitis with subsequent pain with resisted extension, pain with gripping, and with activities requiring increased gripping/fine motor skills. Pt. would benefit from PT to work on the above limitations progressing back to all recreational activities without increase in symptoms. Rehabilitation Potential: Excellent - Anticipated Interventions Patient/Client Instruction: Educate patient on: Condition, Plan of Care, Risk Factors, Benefits of Fitness Program For the Purpose of:: To improve safety, To improve health and function, To foster healthy habits, To improve decision making, To facilitate caregiver knowledge, To improve self management, To prevent re-injury, To improve ability to perform tasks related to life management Therapeutic Exercise to Include: Strength training, Power training, Body mechanics, Postural training, Flexibilty training, Gait and locomotor training, Passive ROM, Active ROM, Scapular Strength/Stabilization For the Purpose of:: To decrease pain, To increase ROM, To improve nutrient delivery to tissue, To increase oxygenation perfusion, To improve muscle performance and motor function, To increase tolerance to activity/condition/position, To improve health of tissue, To decrease soft tissue restriction, To increase flexibility/ROM Manual Therapy Techniques to Include: Mobilization, Functional dry needling, Soft tissue mobilization For the Purpose of:: To decrease pain, To decrease swelling/inflammation, To increase ROM, To improve nutrient delivery to tissue, To increase oxygenation perfusion, To improve muscle performance and motor function Ultrasound (thermal/non thermal): Yes For the Purpose of:: To decrease pain, To decrease swelling/inflammation, To increase ROM, To improve nutrient delivery to tissue Thank you for the opportunity to evaluate your patient. For Medicare and Medicare HMO plans, please review the plan of care and approve it. It will need to be FAXED BACK to us at [phone] for Medicare purposes. For Medicare only, by signing this I certify the plan of care. Please let me know if there are questions or concerns regarding this plan of care. Physician Signature: Date:___
== END 2023-01-02 19:00 | disposition home or self-care (01) ==
LOC: PT 08:30
PROVIDERS: PCP Family Medicine; Referring Provider Family Medicine; Visit Provider Family Medicine
DX: M25.522 Pain in left elbow (principal); M77.12 Lateral epicondylitis, left elbow
CPT/HCPCS: 97035; 97110; 97161

== ENCOUNTER → 2023-04-18 | Outpatient (CLI) | payer OTHER, SELFPAY ==
[2023-04-18 18:09] LABS: Absolute Lymphocyte Count 2.07 X10^3/uL (0.83-4.51); Absolute Neutrophil Count 3.9 X10^3/uL (2.0-7.7); Basophil# 0.06 X10^3/uL; Basophil% 0.9 % (0-1); Hemoglobin 13.8 g/dL (12.0-15.0); Lymphocyte # 2.07 X10^3/ul (0.83-4.51); Lymphocyte % 31.1 % (19-41); Mean Corp Hgb Conc 32.9 g/dL (32-36); Mean Corpuscular Hgb 30.7 pg (27.0-32.0); Mean Corpuscular Volume 93.5 fL (81-99); Mean Platelet Vol. 10.2 fl (6.2-12.0); Monocyte# 0.43 X10^3/uL; Monocyte% 6.5 % (0-10); NRBC Flagged by Analyzer 0 % (0-5); Neutrophil # 3.88 X10^3/uL (2.7-7.7); Neutrophil % 58.3 % (47-70); Platelet Count 260 K/mm3 (150-450); RBC Distribution Width CV 13.3 % (11.6-14.6); RBC Distribution Width SD 45.6 fl (35.1-43.9); Red Blood Count 4.49 M/mm3 (4.2-5.4); White Blood Count 6.7 K/mm3 (4.4-11.0)
[2023-04-18 18:39] LABS: AST(SGOT) 19 U/L (15-37); Alanine Aminotransfer ALT/SGPT 31 U/L (13-56); Albumin, Serum 3.6 g/dL (3.2-5.0); Alkaline Phosphatase 160 U/L (45-117); Anion Gap 7 (5-15); BUN 16 mg/dL (7-18); BUN/Creat Ratio 14.7 RATIO (10-20); Calcium,Total 8.8 mg/dL (8.5-10.1); Chloride 105 mmol/L (98-107); Creatinine, Serum 1.09 mg/dL (0.55-1.02); EST Glomerular Filtration Rate 54 mL/min (>60); Est Glom Filt Rate - Afr Amer 65 mL/min (>60); Ferritin 119 ng/mL (8-252); Globulin 3.7 g/dL (2.2-4.2); Glucose 124 mg/dL (74-106); Iron 46 ug/dL (50-170); Potassium 3.9 mmol/L (3.5-5.1); Protein, Total 7.3 g/dL (6.4-8.2); Sodium Level 141 mmol/L (136-145); T4 Free Direct 1.05 ng/dL (0.76-1.46)
[2023-04-18 18:43] LABS: Vitamin B12 762 pg/mL (211-911)
== END | disposition home or self-care (01) ==
LOC: BFHLAB 14:57
PROVIDERS: PCP Nurse Practitioner Family; Referring Provider Nurse Practitioner Family; Visit Provider Nurse Practitioner Family
DX: R53.83 Other fatigue (principal); N18.31 Chronic kidney disease, stage 3a; E06.3 Autoimmune thyroiditis; I12.9 Hypertensive chronic kidney disease with stage 1 through stage 4 chronic kidney disease, or unspecified chronic kidney disease
CPT/HCPCS: 36415; 80053; 82306; 82607; 82728; 83540; 84439; 84443; 85025

== ENCOUNTER → 2023-05-22 | Outpatient (CLI) | payer OTHER, SELFPAY ==
[2023-05-23 11:09] LABS: ANTINUCLEAR ANTIBODIES DIRECT Negative (Negative)
== END | disposition home or self-care (01) ==
LOC: BFHLAB 09:02
PROVIDERS: PCP Family Medicine; Referring Provider Family Medicine; Visit Provider Family Medicine
DX: R23.3 Spontaneous ecchymoses (principal)
CPT/HCPCS: 36415; 86038; 86225; 86235

== ENCOUNTER → 2023-07-21 | Outpatient (CLI) | payer OTHER, SELFPAY ==
--- NOTE | 2023-07-21 07:49 | BI_ITS ---
MAMMOGRAPHY - BILATERAL SCREENING REASON FOR EXAM: Female, 63 years old. Routine annual screening examination. PERTINENT HISTORY: Grandmother with breast cancer. Aunts with breast cancer. TECHNIQUE: Digital bilateral breast mary ellen (3D mammographic acquisition) in the CC and MLO projections. 2-D mediolateral oblique (MLO) and craniocaudad (CC) views of both breasts were obtained. CAD: Full Field Digital Mammography with Computer Added Detection was performed. COMPARISON: Comparison is made with prior study dated July 19, 2022 and February 13, 2021. FINDINGS: Breast Composition: There are scattered areas of fibroglandular density. There are no dominant masses or suspicious calcifications. No other significant abnormalities are identified. There has been no significant change since the prior study. BI/SCRN MAMM (CAD)W/MARY ELLEN BILAT IMPRESSION: Stable bilateral screening mammogram. Yearly follow-up mammogram recommended. (A) ASSESSMENT CATEGORY: BIRADS Category 1: Negative. A letter regarding these results will be sent to the patient by the facility within 30 days. Approximately 10% of breast cancers are not detected by mammography. A normal mammogram should not delay biopsy of a clinically suspicious abnormality. [id number] Electronically Signed: Art Logan MD at 12:37 EDT ,
== END | disposition home or self-care (01) ==
LOC: OPBI 07:47
PROVIDERS: PCP Family Medicine; Referring Provider Family Medicine; Visit Provider Family Medicine
DX: Z12.31 Encounter for screening mammogram for malignant neoplasm of breast (principal)
CPT/HCPCS: 77063; 77067

== ENCOUNTER → 2023-10-08 | Outpatient (CLI) | payer OTHER, SELFPAY ==
[2023-10-08 10:42] LABS: Free T3 2.8 pg/mL (2.18-3.98); T4 Free Direct 1.28 ng/dL (0.76-1.46); Thyroid Stim Hormone (TSH) 0.67 uIU/mL (0.358-3.74)
[2023-10-14 16:09] LABS: T3 Reverse 20.2 ng/dL (9.2-24.1)
== END | disposition home or self-care (01) ==
LOC: MTLAB 09:17
PROVIDERS: PCP Family Medicine
DX: E03.9 Hypothyroidism, unspecified (principal); E06.3 Autoimmune thyroiditis; N95.1 Menopausal and female climacteric states; R87.1 Abnormal level of hormones in specimens from female genital organs; I10 Essential (primary) hypertension; E66.9 Obesity, unspecified
CPT/HCPCS: 36415; 84439; 84443; 84481; 84482

== ENCOUNTER → 2023-10-14 | Outpatient (CLI) | payer OTHER, SELFPAY ==
--- NOTE | 2023-10-14 07:14 | US_ITS ---
INDICATION: RUQ PAIN AFTER EATING, GALLBLADDER ISSUES? EXAMINATION: Ultrasound US Abdomen Limited (quadrant) TECHNIQUE: Jean scale and color doppler imaging was performed of the right upper quadrant. COMPARISON: Prior study dated: 03/24/2019 FINDINGS: LIVER: There is mild increased echogenicity. The liver is enlarged measuring about 19.2 cm in length. No focal hepatic lesion. There is no free fluid. GALLBLADDER AND BILIARY TREE: No shadowing gallstone, pericholecystic fluid or gallbladder wall thickening is demonstrated. The gallbladder wall is within normal limits measuring about 3 mm. The proximal common bile duct measures 10 mm, which is dilated Sonographic Rivera''s sign: Not assessed. PANCREAS: No focal abnormality is demonstrated in the visualized portions of the pancreas. No pancreatic ductal dilatation. RIGHT KIDNEY: The right kidney measures about 11.3 cm in length. No evidence of hydronephrosis. US/Abdomen Limited IMPRESSION: 1. Hepatomegaly and hepatic steatosis. 2. Dilated common bile duct without evidence of gallstones. MRCP might be further value if clinically indicated. Electronically Signed: Eliu Chandler MD at 15:09 EST ,
--- OUTSIDE RECORDS SUMMARY | 2023-10-14 07:35 | XMS RPT_ITS | CCD ---
Author Name Unknown Address [address] [place] [address] Organization [facility] Care Team Providers Care Stock Roller Name Role Phone MEGHANN BRUMFIELD JR. Unavailable Unavailable MEGHANN BRUMFIELD JR. Unavailable Unavailable ADAN LEE Unavailable Unavailable MEGHANN BRUMFIELD JR. Unavailable Unavailable MEGHANN BRUMFIELD JR. Unavailable Unavailable MEGHANN BRUMFIELD JR. Unavailable Unavailable MEGHANN BRUMFIELD JR. Unavailable Unavailable MEGHANN BRUMFIELD JR. Unavailable Unavailable MEGHANN BRUMFIELD JR. Unavailable Unavailable MEGHANN BRUMFIELD JR. Unavailable Unavailable Bernadette Payne DO A Primary Care Provider Keith Jones Unavailable [phone] Keith Jones MD Unavailable [phone] BERNADETTE PAYNE Primary Care Unavailable OSMANI CORDOVA Attending Unavailable BERNADETTE PAYNE Primary Care Unavailable OSMANI CORDOVA Attending Unavailable BERNADETTE PAYNE Primary Care Unavailable OSMANI CORDOVA Referring Unavailable OSMANI CORDOVA Attending Unavailable BERNADETTE PAYNE Primary Care Unavailable OSMANI CORDOVA Attending Unavailable Allergies Allergy Classification Reported Allergen(s) Allergy Type Date of Onset Reaction(s) Facility (6 sources) Aspirin; Translations: [ASPIRIN] Drug Allergy 3 GI Upset, Intolerance [facility] (6 sources) dorzolamide; Translations: [DORZOLAMIDE] Drug Allergy 3 Itching [facility] (6 sources) latanoprost / netarsudil; Translations: [NETARSUDIL-LATANO PROST] Drug Allergy 3 Itching [facility] (6 sources) Latanoprostene Bunod; Translations: [LATANOPROSTENE BUNOD] Drug Allergy 3 Other: See Comments [facility] (6 sources) netarsudil; Translations: [NETARSUDIL] Drug Allergy 3 Itching [facility] (6 sources) tafluprost; Translations: [TAFLUPROST (PF)] Drug Allergy 3 Itching [facility] Medications Current Medications Medication Drug Class(es) Dates Sig (Normalized) Sig (Original) benoxinate hydrochloride 4 mg/ml / fluorescein sodium 3 mg/ml ophthalmic solution (3 sources) Diagnostic Dye Start: 09-12-2023 End: 09-13-2023 fluorescein-benoxi ernie 0.3-0.4 % 1 Drop (FLURESS) Completed/Discontinued Medications Medication Drug Class(es) Dates Sig (Normalized) Sig (Original) preservative-free dorzolamide 20 mg/ml / timolol 5 mg/ml ophthalmic solution (5 sources) Carbonic Anhydrase Inhibitor, beta-Adrenergic Nissa Start: 08-25-2023 dorzolamide-timolo l, PF, (COSOPT) 2-0.5 % ophthalmic drops INSTILL 1 DROP INTO BOTH EYES EVERY 12 HOURS 60 mL 11 08/26/2023 Active Problems Active Problems Problem Classification Problem Date Documented Da te Episodic/Chronic Cataract (1 source) Nuclear senile cataract; Translations: [Age-related nuclear cataract, bilateral] 05-15-2023 Chronic Glaucoma (4 sources) Preglaucoma, unspecified, bilateral; Translations: [Preglaucoma, unspecified] 05-15-2023 Chronic Unclassified (1 source) Unknown / UNK(Unknown) Onset: 04-18-2017 Past or Other Problems Problem Classification Problem Date Documented Da te Episodic/Chronic Unclassified (1 source) US LEG Onset: 04-18-2017 Results Test Name Value Interpretation Reference Range Facil ity Encounters Encounter Date Encounter Type Care Provider Facility Start: 09-12-2023 End: 09-12-2023 [facility] Facility:[facility] Start: 09-12-2023 End: 09-12-2023 Patient encounter procedure Osmani Cordova MD Work Phone: Ophthalmology Procedures Date Procedure Procedure Detail Performing Clinician Start: 09-12-2023 End: 09-12-2023 Trabeculoplasty by laser surgery Osmani Cordova MD Work Phone: Start: 06-26-2023 Visual field xm uni/ bi w/interp extended exam Osmani Cordova MD Work Phone: Start: 05-15-2023 Computerized ophthal juvenal imaging optic nerve Osmani Cordova MD Work Phone: Start: 05-15-2023 Ophthalmic us dx cor zackary pachymetry uni/bi Osmani Cordova MD Work Phone: Plan of Treatment Date Care Activity Detail Author Start: 05-29-2024 End: 11-05-2024 VISUAL FIELD 24-2 OU (BOTH EYES) VISUAL FIELD 24-2 OU (BOTH EYES) OPHT Imaging Routine Primary open angle glaucoma (POAG) of both eyes, indeterminate stage Expected: 05/29/2024, Expires: 11/05/2024 [facility] Work Phone: Payers Date Payer Category Payer Private Health Insurance [id number] 2023 Private Health Insurance [id number] 2017 Unknown [id number] Social History Date Type Detail Facility Start: 05-15-2023 Tobacco smoking stat us NHIS Never smoked tobacco [facility] Start: 05-15-2023 Tobacco use and exposure Smoke less tobacco non-user [facility] Start: 05-15-2023 End: 09-12-2023 Alcohol intake Lifetime non-drinker (finding) [facility] Start: 05-15-2023 End: 09-12-2023 History of Social function [place] [facility] Start: 05-15-2023 End: 09-12-2023 Area Deprivation Index [facility] National Score (1-10 0), lower number is lower risk 71 [facility] Start: 1960 Sex Assigned At Not on file C [facility] Clinical Notes 05-15-2023 to 09-12-2023 Osmani Cordova MD - 09/12/2023 3:52 PM ESTTelephone Encounter - Juju Jose - 08/25/2023 2:41 PM Osmani Jim MD - 06/26/2023 1:26 PM EDTAddendum Note - Osmani Cordova MD - 05/15/2023 3:59 PM EDT Note Date & Type Note Facility 09-12-2023 Note HNO ID: [id number] Author: Osmani Cordova MD Service: ? 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 - convincing disease on exam and OCT retinal nerve fiber layer - visual field baseline today with early central loss consistent with low tension glaucoma (LTG) - negative risks: DE, low blood pressure, migraines, vasculitis - goal low teen both eyes - [facility] data review: right eye range 12-24 / mean 15.4; left eye range 13-24 / mean 16.6 - rec Selected laser trabeculoplasty (SLT) both eyes today - follow 2 months, intraocular pressure, icare home again # Cataract both eyes - not visually significant I have confirmed and edited as necessary the relevant ophthalmic history, ROS, and the neuro exam findings as obtained by others. I have seen and examined Anne Marie Hall. I have discussed the case and the management of this patient's care with the Resident/Fellow, if applicable. I also have reviewed and agree with the assessment and plan as stated above and agree with all of its relevant components. 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 - convincing disease on exam and OCT retinal nerve fiber layer - visual field baseline today with early central loss consistent with low tension glaucoma (LTG) - negative risks: ED, low blood pressure, migraines, vasculitis - goal low teen both eyes - [facility] home data review: right eye range 12-24 / mean 15.4; left eye range 13-24 / mean 16.6 - rec Selected laser trabeculoplasty (SLT) both eyes today - follow 2 months, intraocular pressure, icare home again # Cataract both eyes - not visually significant I have confirmed and edited as necessary the relevant ophthalmic history, ROS, and the neuro exam findings as obtained by others. I have seen and examined Anne Marie Hall. I have discussed the case and the management of this patient's care with the Resident/Fellow, if applicable. I also have reviewed and agree with the assessment and plan as stated above and agree with all of its relevant components. Osmani Cordova MD documented in this encounter [facility] 08-26-2023 Note HNO ID: [id number] Author: Felicia Menchaca Ms Service: ? Author Type: ? Type: Progress Notes Filed: 08/26/2023 4:05 PM Note Text: Informed Consent IRB #:[id number] Study Title: Home Tonometry before and after glaucoma treatment Subject #: #14 Patient here for Screening. Today, 08/26/2023 the informed consent was read and reviewed in detail with emphasis on trial design, risks alternatives, benefits and follow-ups. Any questions asked were answered satisfactory. The patient/caregiver was asked to explain the study back to the study staff, and the patients and caregiver/family members comprehension was adequally assessed as sufficient. The Informed Consent was signed on 08/26/2023 , in the presence of Photonics Engineering Technologist and a copy of the signed and dated consent was given to the patient for his/her record. All procedures completed. Treatment per protocol. RENA Meza Clinical Research Coordinator 08/26/2023 4:[address] [facility] 08-26-2023 Note HNO ID: [id number] Author: Osmani Cordova MD Service: ? 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 I have seen and examined Anne Marie Hall. I have discussed the case and the management of this patient's care with the Resident/Fellow, if applicable. I also have reviewed and agree with the assessment and plan as stated above and agree with all of its relevant components. Osmani Cordova MD [facility] 08-25-2023 Miscellaneous Notes Pharmacy electronically requesting refills as follows: Requested Prescriptions Pending Prescriptions Disp Refills dorzolamide-timolol, PF, (COSOPT) 2-0.5 % ophthalmic drops [Pharmacy Med Name: DORZOLAMIDE-TIMOLOL 2%-0.5%] 60 mL Sig: INSTILL 1 DROP INTO BOTH EYES EVERY 12 HOURS Please review and advise. 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 - convincing disease on exam and OCT retinal nerve fiber layer - visual field baseline today with early central loss consistent with low tension glaucoma (LTG) - negative risks: ED, low blood pressure, migraines, vasculitis - trial timolol every morning both eyes -> minimal effect, switch to cosopt PF - follow 2 months, intraocular pressure, consider [facility] home given low tension glaucoma (LTG) - can consider Selected laser trabeculoplasty (SLT) as next step - goal low teen both eyes # Cataract both eyes - not visually significant documented in this encounter [facility] 06-26-2023 Note HNO ID: [id number] Author: Osmani Cordova MD Service: ? 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 - convincing disease on exam and OCT retinal nerve fiber layer - visual field baseline today with early central loss consistent with low tension glaucoma (LTG) - negative risks: ED, low blood pressure, migraines, vasculitis - trial timolol every morning both eyes -> minimal effect, switch to cosopt PF - follow 2 months, intraocular pressure, consider [facility] home given low tension glaucoma (LTG) - can consider Selected laser trabeculoplasty (SLT) as next step - goal low teen both eyes # Cataract both eyes - not visually significant I have confirmed and edited as necessary the relevant ophthalmic history, ROS, and the neuro exam findings as obtained by others. I have seen and examined Anne Marie Hall. I have discussed the case and the management of this patient's care with the Resident/Fellow, if applicable. I also have reviewed and agree with the assessment and plan as stated above and agree with all of its relevant components. 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 - convincing disease on exam and OCT retinal nerve fiber layer - visual field baseline today with early central loss consistent with low tension glaucoma (LTG) - negative risks: ED, low blood pressure, migraines, vasculitis - trial timolol every morning both eyes -> minimal effect, switch to cosopt PF - follow 2 months, intraocular pressure, consider [facility] home given low tension glaucoma (LTG) - can consider Selected laser trabeculoplasty (SLT) as next step - goal low teen both eyes # Cataract both eyes - not visually significant I have confirmed and edited as necessary the relevant ophthalmic history, ROS, and the neuro exam findings as obtained by others. I have seen and examined Anne Marie Hall. I have discussed the case and the management of this patient's care with the Resident/Fellow, if applicable. I also have reviewed and agree with the assessment and plan as stated above and agree with all of its relevant components. Osmani Cordova MD documented in this encounter [facility] 05-15-2023 Miscellaneous Notes Addended by: OSMANI CORDOVA on: 05/15/2023 03:59 PM Modules accepted: Orders documented in this encounter [facility] 05-15-2023 Note HNO ID: [id number] Author: Osmani Cordova MD Service: ? Author Type: Physician Type: Progress Notes Filed: 05/15/2023 3:59 PM Note Text: New, referral from [facility] Tmax: ?; Pachy: 570's both eyes Lasers and Surgeries: OD: 03/2020 Selected laser trabeculoplasty (SLT) OS: Ocular Medication Intol and Non-efficacy: Dorzolamide = swelling and burning Now on latan 10/13 Next on latan 10/13, timolol 10/13 -HVF - OD OS -OCT 05/2023 OD inf thinning OS inf thinning # Primary open angle glaucoma (POAG) indeterminate both eyes - convincing disease on exam and OCT retinal nerve fiber layer - trial timolol every morning both eyes - follow 6 weeks, baseline visual field, assess timolol tolerance, possible Selected laser trabeculoplasty (SLT) both eyes # Cataract both eyes - not visually significant I have confirmed and edited as necessary the relevant ophthalmic history, ROS, and the neuro exam findings as obtained by others. I have seen and examined Anne Marie Hall. I have discussed the case and the management of this patient's care with the Resident/Fellow, if applicable. I also have reviewed and agree with the assessment and plan as stated above and agree with all of its relevant components. Osmani Cordova MD [facility] 05-15-2023 History of Presen t illness Narrative New, referral from [facility] Tmax: ?; Pachy: 570's both eyes Lasers and Surgeries: OD: 03/2020 Selected laser trabeculoplasty (SLT) OS: Ocular Medication Intol and Non-efficacy: Dorzolamide = swelling and burning Now on latan 10/13 Next on latan 10/13, timolol /1 -HVF - OD OS -OCT 05/2023 OD inf thinning OS inf thinning # Primary open angle glaucoma (POAG) indeterminate both eyes - convincing disease on exam and OCT retinal nerve fiber layer - trial timolol every morning both eyes - follow 6 weeks, baseline visual field, assess timolol tolerance, possible Selected laser trabeculoplasty (SLT) both eyes # Cataract both eyes - not visually significant I have confirmed and edited as necessary the relevant ophthalmic history, ROS, and the neuro exam findings as obtained by others. I have seen and examined Anne Marie Hall. I have discussed the case and the management of this patient's care with the Resident/Fellow, if applicable. I also have reviewed and agree with the assessment and plan as stated above and agree with all of its relevant components. Osmani Cordova MD documented in this encounter [facility] Primary open angle glaucoma (POAG) of both eyes, indeterminate stage [facility] Diagnosis Primary open angle glaucoma (POAG) of both eyes, indeterminate stage- Primary documented in this encounter [facility] Summary Purpose Family History No Family History Records FoundNo Family History Records FoundNo Family History Records Found Advance Directives No Advanced Directives Records FoundNo Advanced Directives Records FoundNo Advanced Directives Records Found Medications Administered Section Active Administered Medications - up to 3 most recent administrations Medication Order MAR Action Action Date Dose Rate Site fluorescein-benoxinate 0.25-0.4 % 1 Drop (FLURESS) 1 Drop, BOTH EYES, DIRECTED, Starting on Pippa 05/15/23 at 1530, Until Fri05/16/23 at 0329, Administer for applanation tonometry. In the event of a Fluress shortage, administer [place]-Fluor 1 drop into both eyes as directed for applanation tonometry Given 05/15/2023 3:30 PM EDT 1 Drop PHENYLephrine 2.5 % 1 Drop (AK-DILATE, TERRELL-SYNEPHRINE) 1 Drop, BOTH EYES, DIRECTED, Starting on Pippa 05/15/23 at 1530, Until Fri05/16/23 at 0329, Administer for dilation PROTECT FROM LIGHT Given 05/15/2023 3:30 PM EDT 1 Drop tropicamide 1 % 1 Drop (MYDRIACYL) 1 Drop, BOTH EYES, DIRECTED, Starting on Pippa 05/15/23 at 1530, Until Fri05/16/23 at 0329, Administer for dilation Given 05/15/2023 3:30 PM EDT 1 Drop Active Administered Medications - up to 3 most recent administrations Medication Order MAR Action Action Date Dose Rate Site fluorescein-benoxinate 0.3-0.4 % 1 Drop (FLURESS) 1 Drop, BOTH EYES, DIRECTED, Starting on Fri09/12/23 at 1500, Until Fri09/13/23 at 0259, Administer for applanation tonometry. In the event of a Fluress shortage, administer Julia-Fluor 1 drop into both eyes as directed for applanation tonometry Given 09/12/2023 2:46 PM EST 1 Drop Additional Source Comments INFORMATION SOURCE (unrecogn ized section and content) DATE CREATED AUTHOR AUTHOR'S ORGANIZ ATION 04/08/2018 [facility] [place] [facility] DATE CREATED AUTHOR AUTHOR'S ORGANIZ ATION 09/15/[address] [facility] Source Comments (unrecognize d section and content) In the event this informatio n is protected by the Federal Confidentiality of Alcohol and Drug Abuse Patient Records regulations: The Federal rules restrict any use of the information to criminally investigate or prosecute any alcohol or drug abuse patient.[facility] the event this information is protected by the Federal Confidentiality of Alcohol and Drug Abuse Patient Records regulations: The Federal rules restrict any use of the information to criminally investigate or prosecute any alcohol or drug abuse patient.[facility] the event this information is protected by the Federal Confidentiality of Alcohol and Drug Abuse Patient Records regulations: The Federal rules restrict any use of the information to criminally investigate or prosecute any alcohol or drug abuse patient.[facility] the event this information is protected by the Federal Confidentiality of Alcohol and Drug Abuse Patient Records regulations: The Federal rules restrict any use of the information to criminally investigate or prosecute any alcohol or drug abuse patient.[facility] the event this information is protected by the Federal Confidentiality of Alcohol and Drug Abuse Patient Records regulations: The Federal rules restrict any use of the information to criminally investigate or prosecute any alcohol or drug abuse patient.[facility] Reason for Visit (unrecogniz ed section and content) Reason Comments routine Specialty Diagnoses / Procedures Referred By Jesus Manuel shulka Referred To Contact OPHTHALMOLOGY Diagnoses Glaucoma Procedures est adult Osmani Cordova MD [address] [place] [address] Opht [facility] [address] [place] [id number] Referral ID Status Reason Start Date Expiration Date V isits Requested Visits Authorized [id number] Pending Review 06/23/2023 09/21/2023 99 99 Reason Comments Refill Request Reason Comments Primary Open Angle Glaucoma Follow Up Care Teams (unrecognized sec tion and content) Stock Roller Relationship Specialty Start Date End Date Bernadette Payne DO [address] [facility] [place] [address] PCP - General Family Medicine 03/24/23 Keith Jones [address] [place], [place] [address] Referring Ophthalmology 03/24/23 Stock Roller Relationship Specialty Start Date End Date Bernadette Payne DO [address] [place], [place] [id number] PCP - General Family Medicine 03/24/23 Keith Jones [address] [place] [address] Referring Ophthalmology 03/24/23 Stock Roller Relationship Specialty Start Date End Date Bernadette Payne DO [address] [place], [place] [id number] PCP - General Family Medicine 03/24/23 Keith Jones MD [address] [place], [place] [address] Referring Ophthalmology 03/24/23 Stock Roller Relationship Specialty Start Date End Date Bernadette Payne DO [address] [place], [place] [address] PCP - General Family Medicine 03/24/23 Keith Jones MD [address] [place], [place] [address] Referring Ophthalmology 03/24/23 FOR RECORDS PERTAINING TO PATIENTS WHO ARE OR HAVE BEEN ENROLLED IN A CHEMICAL DEPENDENCY/SUBSTANCEABUSE PROGRAM, SOME INFORMATION MAY BE OMITTED. This clinical summary was aggregated from multiple sources. Caution should be exercised in using it in the provision of clinical care. This summary normalizes information from multiple sources, and as a consequence, information in this document may materially change the coding, format and clinical context of patient data. In addition, data may be omitted in some cases. CLINICAL DECISIONS SHOULD BE BASED ON THE PRIMARY CLINICAL RECORDS. [facility] [employer] [facility]. provides no warranty or guarantee of the accuracy or completeness of information in this document.
== END | disposition home or self-care (01) ==
LOC: US 07:13
PROVIDERS: PCP Family Medicine; Referring Provider Family Medicine; Visit Provider Family Medicine
DX: R10.11 Right upper quadrant pain (principal)
CPT/HCPCS: 76705

== ENCOUNTER → 2023-10-30 | Outpatient (CLI) | payer OTHER, SELFPAY ==
--- OUTSIDE RECORDS SUMMARY | 2023-10-30 08:08 | XMS RPT_ITS | CCD ---
Author Name Unknown Address [address] [place] [address] Organization [employer] Care Team Providers Care Frontload Driver Name Role Phone MEGHANN BRUMFIELD JR. Unavailable Unavailable MEGHANN BRUMFIELD JR. Unavailable Unavailable ADAN LEE Unavailable Unavailable MEGHANN BRUMFIELD JR. Unavailable Unavailable MEGHANN BRUMFIELD JR. Unavailable Unavailable MEGHANN BRUMFIELD JR. Unavailable Unavailable MEGHANN BRUMFIELD JR. Unavailable Unavailable MEGHANN BRUMFIELD JR. Unavailable Unavailable MEGHANN BRUMFIELD JR. Unavailable Unavailable MEGHANN BRUMFIELD JR. Unavailable Unavailable Bernadette Payne DO A Primary Care Provider Keith Jones Unavailable [phone] Keith Jones MD Unavailable [phone] BERNADETTE PAYNE Primary Care Unavailable OSMANI CORDOVA Attending Unavailable BERNADETTE PAYNE Primary Care Unavailable OSMANI CORDOVA Attending Unavailable BERNADETTE PAYNE Primary Care Unavailable OSMANI CORDOVA Referring Unavailable OSMANI CORDOVA Attending Unavailable BERNADETTE PAYNE Primary Care Unavailable OSMANI CORDOVA Attending Unavailable Allergies Allergy Classification Reported Allergen(s) Allergy Type Date of Onset Reaction(s) Facility (6 sources) Aspirin; Translations: [ASPIRIN] Drug Allergy 3 GI Upset, Intolerance [facility] (6 sources) dorzolamide; Translations: [DORZOLAMIDE] Drug Allergy 3 Itching [facility] (6 sources) latanoprost / netarsudil; Translations: [NETARSUDIL-LATANO PROST] Drug Allergy 3 Itching [facility] (6 sources) Latanoprostene Bunod; Translations: [LATANOPROSTENE BUNOD] Drug Allergy 3 Other: See Comments [facility] (6 sources) netarsudil; Translations: [NETARSUDIL] Drug Allergy 3 Itching [facility] (6 sources) tafluprost; Translations: [TAFLUPROST (PF)] Drug Allergy 3 Itching [facility] Medications Current Medications Medication Drug Class(es) Dates [...] Care Provider Facility Start: 09-12-2023 End: 09-12-2023 [facility] Facility:[facility] Start: 09-12-2023 End: 09-12-2023 Patient encounter [...] eyes, indeterminate stage Expected: 05/29/2024, Expires: 11/05/2024 [facility] Work Phone: Payers Date Payer Category Payer Private Health Insurance [id number] 2023 Private Health Insurance [id number] 2017 Unknown [id number] Social History Date Type Detail Facility Start: 05-15-2023 Tobacco smoking stat us NHIS Never smoked tobacco [facility] Start: 05-15-2023 Tobacco use and exposure Smoke less tobacco non-user [facility] Start: 05-15-2023 End: 09-12-2023 Alcohol intake Lifetime non-drinker (finding) [facility] Start: 05-15-2023 End: 09-12-2023 History of Social function [facility] Start: 05-15-2023 End: 09-12-2023 Area Deprivation Index [facility] National Score (1-10 0), lower number is lower risk 71 [facility] Start: 1960 Sex Assigned At Not on file C [facility] Clinical Notes 05-15-2023 to 09-12-2023 Osmani Cordova MD - 09/12/2023 3:52 PM ESTTelephone Encounter - Juju Jose - 08/25/2023 2:41 PM Osmani Jim MD - 06/26/2023 1:26 PM EDTAddendum Note - Osmani Cordova MD - 05/15/2023 3:59 PM EDT Note Date & Type Note Facility 09-12-2023 Note HNO ID: [id number] Author: Osmani Cordova MD Service: ? Author Type: Physician Type: Progress Notes Filed: 09/12/2023 4:42 PM Note Text: New, referral from [facility] Tmax: ?; Pachy: 570's both eyes Lasers [...] of its relevant components. Osmani Cordova MD [facility] 09-12-2023 History of Presen t illness Narrative New, referral from [facility] Tmax: ?; Pachy: 570's both eyes Lasers [...] Osmani Cordova MD documented in this encounter [facility] 08-26-2023 Note HNO ID: [id number] Author: Felicia Menchaca Ms Service: ? Author [...] on 08/26/2023 , in the presence of Youth Services Specialist and a copy of the signed and dated consent was given to the patient for his/her record. All procedures completed. Treatment per protocol. RENA Meza Clinical Research Coordinator 08/26/2023 4:05 PM [facility] 08-26-2023 Note HNO ID: [id number] Author: Osmani Cordova MD Service: ? Author Type: Physician Type: Progress Notes Filed: 08/26/2023 8:31 AM Note Text: New, referral from [facility] Tmax: ?; Pachy: 570's both eyes [...] of its relevant components. Osmani Cordova MD [facility] 08-25-2023 Miscellaneous Notes Pharmacy electronically requesting refills as follows: Requested Prescriptions Pending Prescriptions Disp Refills dorzolamide-timolol, PF, (COSOPT) 2-0.5 % ophthalmic drops [Pharmacy Med Name: DORZOLAMIDE-TIMOLOL 2%-0.5%] 60 mL Sig: INSTILL 1 DROP INTO BOTH EYES EVERY 12 HOURS Please review and advise. [facility] 08/26/23 Osmani Cordova MD filed at 06/26/2023 1:35 PM Status: Signed New, referral from [facility] Tmax: ?; Pachy: 570's both eyes Lasers [...] not visually significant documented in this encounter [facility] 06-26-2023 Note HNO ID: [id number] Author: Osmani Cordova MD Service: ? Author Type: Physician Type: Progress Notes Filed: 06/26/2023 1:35 PM Note Text: New, referral from [facility] Tmax: ?; Pachy: 570's both eyes Lasers [...] of its relevant components. Osmani Cordova MD [facility] 06-26-2023 History of Presen t illness Narrative New, referral from [facility] Tmax: ?; Pachy: 570's both eyes [...] Osmani Cordova MD documented in this encounter [facility] 05-15-2023 Miscellaneous Notes Addended by: OSMANI CORDOVA on: 05/15/2023 03:59 PM Modules accepted: Orders documented in this encounter [facility] 05-15-2023 Note HNO ID: [id number] Author: Osmani Cordova MD Service: ? Author Type: Physician Type: Progress Notes Filed: 05/15/2023 3:59 PM Note Text: New, referral from [facility] Tmax: ?; Pachy: 570's both eyes Lasers [...] of its relevant components. Osmani Cordova MD [facility] 05-15-2023 History of Presen t illness Narrative New, referral from [facility] Tmax: ?; Pachy: 570's both eyes Lasers [...] Osmani Cordova MD documented in this encounter [facility] documented [facility] encounter [facility] Diagnosis Primary open angle glaucoma (POAG) of both eyes, indeterminate stage [facility] Diagnosis Primary open angle glaucoma (POAG) of both eyes, indeterminate stage- Primary documented in this encounter [facility] Summary Purpose Family History No Family History [...] the event of a Fluress shortage, administer [place]-Fluor 1 drop into both eyes as directed [...] the event of a Fluress shortage, administer [place]-Fluor 1 drop into both eyes as directed for applanation tonometry Given 09/12/2023 2:46 PM EST 1 Drop Additional Source Comments INFORMATION SOURCE (unrecogn ized section and content) DATE CREATED AUTHOR AUTHOR'S ORGANIZ ATION 04/08/2018 [facility] DATE CREATED AUTHOR AUTHOR'S ORGANIZ ATION 09/15/2023 [facility] Source Comments (unrecognize d section and content) In the event this informatio n is protected by the Federal Confidentiality of Alcohol and Drug Abuse Patient Records regulations: The Federal rules restrict any use of the information to criminally investigate or prosecute any alcohol or drug abuse patient.[facility] the event this information is protected by the Federal Confidentiality of Alcohol and Drug Abuse Patient Records regulations: The Federal rules restrict any use of the information to criminally investigate or prosecute any alcohol or drug abuse patient.[facility] the event this information is protected by the Federal Confidentiality of Alcohol and Drug Abuse Patient Records regulations: The Federal rules restrict any use of the information to criminally investigate or prosecute any alcohol or drug abuse patient.[facility] Center[facility] the event this information is protected by the Federal Confidentiality of Alcohol and Drug Abuse Patient Records regulations: The Federal rules restrict any use of the information to criminally investigate or prosecute any alcohol or drug abuse patient.[facility] Center[facility] the event this information is protected by the Federal Confidentiality of Alcohol and Drug Abuse Patient Records regulations: The Federal rules restrict any use of the information to criminally investigate or prosecute any alcohol or drug abuse patient.[facility] Reason for Visit (unrecogniz ed section and content) Reason Comments routine Specialty Diagnoses / Procedures Referred By Jesus Manuel shukla Referred To Contact OPHTHALMOLOGY Diagnoses Glaucoma Procedures est adult Osmani Cordova MD [address] [place] [address] Opht [facility] [address] [place] [id number] Referral ID Status Reason Start Date Expiration Date V isits Requested Visits Authorized [id number] Pending Review 06/23/2023 09/21/2023 99 99 Reason Comments Refill Request Reason Comments Primary Open Angle Glaucoma Follow Up Care Teams (unrecognized sec tion and content) Frontload Driver Relationship Specialty Start Date End Date Bernadette Payne DO [address] [facility] [place] [address] PCP - General Family Medicine 03/24/23 Keith Jones [address] [place], [place] [id number] Referring Ophthalmology 03/24/23 Frontload Driver Relationship Specialty Start Date End Date Bernadette Payne DO [address] [place], [place] [id number] PCP - General Family Medicine 03/24/23 Keith Jones [address] [place] [address] Referring Ophthalmology 03/24/23 Frontload Driver Relationship Specialty Start Date End Date Bernadette Payne DO [address] [place], [place] [address] PCP - General Family Medicine 03/24/23 Keith Jones MD [address] [place], [place] [address] Referring Ophthalmology 03/24/23 Frontload Driver Relationship Specialty Start Date End Date Bernadette Payne DO [address] [place], [place] [phone] PCP - General Family Medicine 03/24/23 Keith Jones MD [address] [place], [place] [address] Referring Ophthalmology 03/24/23 FOR RECORDS PERTAINING TO [...] BE BASED ON THE PRIMARY CLINICAL RECORDS. [facility] [employer] [facility] provides no warranty or guarantee of the accuracy or completeness of information in this document.
--- NOTE | 2023-10-30 08:22 | MRI_ITS ---
EXAM: MR ABDOMEN WITHOUT INTRAVENOUS CONTRAST, MRCP PROTOCOL CLINICAL INDICATION: DILATED COMMON BILE DUCT TECHNIQUE: Multiplanar and multisequence MR images of the abdomen without intravenous contrast obtained with MRCP sequence. Three-dimensional post-processing reconstructions were performed. COMPARISON: Abdominal ultrasound 10/14/2023 FINDINGS: LOWER THORAX: Normal. No pleural effusion. LIVER: Normal. Normal morphology. GALLBLADDER AND BILE DUCTS: Common bile duct measures 9 mm in maximum diameter. No evidence of an obstructing stone or mass. Normal-appearing gallbladder. No gallbladder distention or wall edema. PANCREAS: Normal. No focal cystic mass. Normal pancreatic duct. SPLEEN: Normal. Non-enlarged. ADRENALS: Normal. No nodules. KIDNEYS AND URETERS: Normal. Normal renal size and position. No hydronephrosis. INTRAPERITONEAL SPACE: Normal. No ascites or other fluid collection. VASCULATURE: Normal. Abdominal aorta is non-dilated. LYMPH NODES: No enlarged lymph nodes. MRI/MRCP Abdomen without Contrast IMPRESSION: Mild prominence of the biliary tree without evidence of an obstructing stone or mass. Electronically Signed: Jan Dangelo MD at 11:47 EST ,
== END | disposition home or self-care (01) ==
PROVIDERS: PCP Family Medicine; Visit Provider Family Medicine
DX: R10.9 Unspecified abdominal pain (principal); K83.8 Other specified diseases of biliary tract
CPT/HCPCS: 74181

== ENCOUNTER → 2023-12-29 | Outpatient (CLI) | payer OTHER, SELFPAY ==
[2023-12-29 11:35] LABS: Free T3 3.4 pg/mL (2.18-3.98); Thyroid Stim Hormone (TSH) 0.14 uIU/mL (0.358-3.74)
[2024-01-03 16:09] LABS: T3 Reverse 17.1 ng/dL (9.2-24.1)
== END | disposition home or self-care (01) ==
LOC: MTLAB 08:49
PROVIDERS: PCP Family Medicine
DX: E03.9 Hypothyroidism, unspecified (principal); E06.3 Autoimmune thyroiditis
CPT/HCPCS: 36415; 84439; 84443; 84481; 84482

== ENCOUNTER → 2024-05-06 | Outpatient (CLI) | payer MEDICARE, OTHER, SELFPAY ==
[2024-05-06 10:33] LABS: Free T3 5.5 pg/mL (2.18-3.98); T4 Free Direct 1.19 ng/dL (0.76-1.46); Thyroid Stim Hormone (TSH) < 0.01 uIU/mL (0.358-3.74)
== END | disposition home or self-care (01) ==
PROVIDERS: PCP Family Medicine
DX: I10 Essential (primary) hypertension (principal); E66.9 Obesity, unspecified; E06.3 Autoimmune thyroiditis; R78.1 Finding of opiate drug in blood; N95.1 Menopausal and female climacteric states
CPT/HCPCS: 36415; 84439; 84443; 84481

== ENCOUNTER → 2024-07-09 | Outpatient (CLI) | payer MEDICARE, OTHER, SELFPAY ==
[2024-07-09 10:40] LABS: Absolute Lymphocyte Count 1.69 X10^3/uL (0.83-4.51); Absolute Neutrophil Count 3.3 X10^3/uL (2.0-7.7); Basophil# 0.02 X10^3/uL; Basophil% 0.4 % (0-1); Eosinophil# 0.15 X10^3/uL; Eosinophils% 2.7 % (0-5); Hematocrit 41.8 % (37-47); Hemoglobin 13.3 g/dL (12.0-15.0); Lymphocyte # 1.69 X10^3/ul (0.83-4.51); Lymphocyte % 30.5 % (19-41); Mean Corp Hgb Conc 31.8 g/dL (32-36); Mean Corpuscular Hgb 28.2 pg (27.0-32.0); Mean Corpuscular Volume 88.6 fL (81-99); Mean Platelet Vol. 10.3 fl (6.2-12.0); Monocyte# 0.42 X10^3/uL; Monocyte% 7.6 % (0-10); NRBC Flagged by Analyzer 0 % (0-5); Neutrophil # 3.25 X10^3/uL (2.7-7.7); Neutrophil % 58.6 % (47-70); Platelet Count 251 K/mm3 (150-450); RBC Distribution Width CV 13.4 % (11.6-14.6); RBC Distribution Width SD 43.7 fl (35.1-43.9); Red Blood Count 4.72 M/mm3 (4.2-5.4); White Blood Count 5.5 K/mm3 (4.4-11.0)
[2024-07-09 11:29] LABS: ALB/GLOB Ratio 0.9 RATIO (0.9-2.4); AST(SGOT) 16 U/L (15-37); Alanine Aminotransfer ALT/SGPT 29 U/L (13-56); Albumin, Serum 3.4 g/dL (3.2-5.0); Alkaline Phosphatase 208 U/L (45-117); Anion Gap 5 (5-15); BUN 14 mg/dL (7-18); BUN/Creat Ratio 15.8 RATIO (10-20); Calcium,Total 9.3 mg/dL (8.5-10.1); Chloride 107 mmol/L (98-107); Cholesterol 180 mg/dL (200); Creatinine, Serum 0.89 mg/dL (0.55-1.02); EST Glomerular Filtration Rate 68 mL/min (>60); Est Glom Filt Rate - Afr Amer 82 mL/min (>60); Free T3 4.9 pg/mL (2.18-3.98); Globulin 3.8 g/dL (2.2-4.2); Glucose 100 mg/dL (74-106); High Density Lipoprotein 48 mg/dL; Potassium 4.2 mmol/L (3.5-5.1); Protein, Total 7.2 g/dL (6.4-8.2); Sodium Level 139 mmol/L (136-145); T4 Free Direct 0.77 ng/dL (0.76-1.46); Thyroid Stim Hormone (TSH) 0.006 uIU/mL (0.358-3.740); Triglycerides 138 mg/dL; Very Low Density Lipoprotein 28 mg/dL (5-40)
== END | disposition home or self-care (01) ==
LOC: MTLAB 07:23
PROVIDERS: PCP Family Medicine; Referring Provider Family Medicine; Visit Provider Family Medicine
DX: Z00.00 Encounter for general adult medical examination without abnormal findings (principal); N18.31 Chronic kidney disease, stage 3a; I12.9 Hypertensive chronic kidney disease with stage 1 through stage 4 chronic kidney disease, or unspecified chronic kidney disease; E55.9 Vitamin D deficiency, unspecified
CPT/HCPCS: 36415; 80053; 80061; 84439; 84443; 84481; 85025

== ENCOUNTER → 2024-07-22 | Outpatient (CLI) | payer MEDICARE, OTHER, SELFPAY ==
--- NOTE | 2024-07-22 09:32 | BI_ITS ---
MAMMOGRAPHY - BILATERAL SCREENING REASON FOR EXAM: Female, 64 years old. Routine annual screening examination. PERTINENT HISTORY: Grandmother with breast cancer. Aunt with breast cancer. TECHNIQUE: Digital bilateral breast mary ellen (3D mammographic acquisition) in the CC and MLO projections. 2-D mediolateral oblique (MLO) and craniocaudad (CC) views of both breasts were obtained. CAD: Full Field Digital Mammography with Computer Added Detection was performed. COMPARISON: Comparison is made with prior study July 21, 2023 and July 19, 2022. FINDINGS: Breast Composition: There are scattered areas of fibroglandular density. There are no dominant masses or suspicious calcifications. No other significant abnormalities are identified. There has been no significant change since the prior study. BI/SCRN MAMM (CAD)W/MARY ELLEN BILAT IMPRESSION: Stable bilateral screening mammogram. Yearly follow-up mammogram recommended. (A) ASSESSMENT CATEGORY: BIRADS Category 1: Negative. A letter regarding these results will be sent to the patient by the facility within 30 days. Approximately 10% of breast cancers are not detected by mammography. A normal mammogram should not delay biopsy of a clinically suspicious abnormality. [id number] Electronically Signed: Art Logan MD at 12:00 EDT ,
== END | disposition home or self-care (01) ==
LOC: OPBI 09:30
PROVIDERS: PCP Family Medicine; Referring Provider Family Medicine; Visit Provider Family Medicine
DX: Z12.31 Encounter for screening mammogram for malignant neoplasm of breast (principal)
CPT/HCPCS: 77063; 77067

== ENCOUNTER → 2025-07-25 | Outpatient (CLI) | payer MEDICARE, OTHER, SELFPAY ==
--- NOTE | 2025-07-25 08:28 | BI_ITS ---
EXAM: SCRN MAMM (CAD)W/MARY ELLEN BILAT DATE: 07/25/2025 CLINICAL HISTORY: F, Age 65 y/o , SCREENING Patient's grandmother and aunt were diagnosed with breast cancer TECHNIQUE: Procedure Code: [id number] Modality: MG Procedure: SCRN MAMM (CAD)W/MARY ELLEN BILAT COMPARISON: Prior exam(s) dated 07/22/2024 and 07/21/2023. FINDINGS: TISSUE DENSITY: There are scattered areas of fibroglandular density. Bilateral Breast Mammographic Findings: There is a 3 mm new nodular masslike density in the superior outer aspect of the left breast. Further workup is indicated. Stable nodular masslike densities and masses are seen elsewhere in the left breast. Benign round microcalcifications are seen in the left breast. Benign round microcalcifications are seen in the right breast. Stable nodular masslike densities are seen in the right breast. No suspicious masses, suspicious clustered microcalcifications, architectural distortion or secondary sign of malignancy is identified in the right breast. BI/SCRN MAMM (CAD)W/MARY ELLEN BILAT IMPRESSION: There is a 3 mm new nodular masslike density in the superior outer aspect of th e left breast. Further workup is indicated. Patient should return for a LM view of the left breast and spot compression CC and spot compression MLO view of the new left breast nodular masslike density. An ultrasound may also be needed. OVERALL FINAL ASSESSMENT BI-RADS 0: INCOMPLETE - NEED ADDITIONAL IMAGING EVALUATION. RECOMMENDATION: Additional Views obtained/call backs Additional Recommendation none A letter with findings and recommendations will be mailed to the patient. Reading Location: [id number]
== END | disposition home or self-care (01) ==
LOC: OPBI 08:27
PROVIDERS: PCP Family Medicine; Referring Provider Family Medicine; Visit Provider Family Medicine
DX: Z12.31 Encounter for screening mammogram for malignant neoplasm of breast (principal)
CPT/HCPCS: 77063; 77067

== ENCOUNTER → 2025-07-27 | Outpatient (CLI) | payer MEDICARE, OTHER, SELFPAY ==
--- NOTE | 2025-07-27 13:57 | BI_ITS ---
EXAM: DIAG MAMM W/CAD, UNILAT 07/27/2025 CLINICAL HISTORY: F, Age 65 y/o , ABN MAMM TECHNIQUE: Procedure Code: [id number] Modality: MG Procedure: DIAG MAMM W/CAD, UNILAT.. Compression spot views of the left breast were obtained. 90 degree lateral view as well as 3D images were obtained. COMPARISON: Prior exam(s) dated July 25, 2025.. FINDINGS: TISSUE DENSITY: There are scattered areas of fibroglandular density. Bilateral Breast Mammographic Findings: No significant masses, calcifications or other abnormalities are identified. BI/DIAG MAMM W/CAD, UNILAT IMPRESSION: No significant abnormality is seen. Targeted sonographic correlation recommend ed. OVERALL FINAL ASSESSMENT BI-RADS 0: INCOMPLETE - NEED ADDITIONAL IMAGING EVALUATION. RECOMMENDATION: Ultrasound Recommended Additional Recommendation none A letter with findings and recommendations will be mailed to the patient. Reading Location: [place] [address]
--- NOTE | 2025-07-27 13:57 | US_ITS ---
PROCEDURE: BREAST LIMITED UNILATERAL 07/27/2025 REASON FOR EXAM: F, Age 65 y/o , ABN MAMM COMPARISON: Prior mammogram done earlier in the day.. TECHNIQUE: Procedure Code: [id number] Modality: US Procedure: BREAST LIMITED UNILATERAL. The upper lateral aspect of the left breast was examined with ultrasound. FINDINGS: No sonographic abnormality is seen. US/Breast Limited Unilateral IMPRESSION: No sonographic abnormality is seen. BI-RADS 1: NEGATIVE RECOMMENDATION: Routine annual follow-up in 1 Year Reading Location: [place] [address]
--- NOTE | 2025-07-27 13:57 | BI_ITS ---
EXAM: DIAG MAMM W/CAD, UNILAT 07/27/2025 CLINICAL HISTORY: F, Age 65 y/o , ABN MAMM TECHNIQUE: Procedure Code: [id number] Modality: MG Procedure: DIAG MAMM W/CAD, UNILAT.. Compression spot views of the left breast were obtained. 90 degree lateral view as well as 3D images were obtained. COMPARISON: Prior exam(s) dated July 25, 2025.. FINDINGS: TISSUE DENSITY: There are scattered areas of fibroglandular density. Bilateral Breast Mammographic Findings: No significant masses, calcifications or other abnormalities are identified. BI/DIAG MAMM W/CAD, UNILAT IMPRESSION: No significant abnormality is seen. Targeted sonographic correlation recommend ed. OVERALL FINAL ASSESSMENT BI-RADS 0: INCOMPLETE - NEED ADDITIONAL IMAGING EVALUATION. RECOMMENDATION: Ultrasound Recommended Additional Recommendation none A letter with findings and recommendations will be mailed to the patient. Reading Location: [place] [address]
--- NOTE | 2025-07-27 13:57 | US_ITS ---
PROCEDURE: BREAST LIMITED UNILATERAL 07/27/2025 REASON FOR EXAM: F, Age 65 y/o , ABN MAMM COMPARISON: Prior mammogram done earlier in the day.. TECHNIQUE: Procedure Code: USBRSTLIMIT Modality: US Procedure: BREAST LIMITED UNILATERAL. The upper lateral aspect of the left breast was examined with ultrasound. FINDINGS: No sonographic abnormality is seen. US/Breast Limited Unilateral IMPRESSION: No sonographic abnormality is seen. BI-RADS 1: NEGATIVE RECOMMENDATION: Routine annual follow-up in 1 Year Reading Location: [place] [address]
== END | disposition home or self-care (01) ==
LOC: OPBI 13:55
PROVIDERS: PCP Family Medicine; Referring Provider Family Medicine; Visit Provider Family Medicine
DX: N63.22 Unspecified lump in the left breast, upper inner quadrant (principal)
CPT/HCPCS: 76642; 77061; 77065; G0279